=== PATIENT | female | born 1945 | race Hispanic/Latino ===

== ENCOUNTER → 2018-09-05 | Outpatient (CLI) | payer OTHER ==
[~2018-09-05] MED LIST: CANA1TAB PO; GLIP-162 PO; IOHEXOL-350 75 ML VIAL IV ONE; LOSA50TA64 PO; OMEP20CA10 PO
== END | disposition home or self-care (01) ==
LOC: RAH 07:33
PROVIDERS: ATTEND Family Medicine
DX: K57.30 Diverticulosis of large intestine without perforation or abscess without bleeding (principal); K42.9 Umbilical hernia without obstruction or gangrene; M47.817 Spondylosis without myelopathy or radiculopathy, lumbosacral region; N85.9 Noninflammatory disorder of uterus, unspecified
CPT/HCPCS: 74177; Q9967

== ENCOUNTER 2018-11-08 07:30 | Inpatient (IN) | payer OTHER ==
[2018-11-07 16:25] VITALS: BP 139/59
[2018-11-07 16:29] LABS: BASOPHILS % (AUTO) 1.3 % (0.0-5.0); HEMATOCRIT 36.4 % (36-48); LYMPHOCYTES % (AUTO) 23.8 % (21.0-51.0); MEAN CORPUSCULAR HEMOGLOBIN 29.5 pg (27.0-33.0); MEAN CORPUSCULAR VOLUME 89.4 fL (79-99); MONOCYTES % (AUTO) 7.3 % (3.0-13.0); NEUTROPHILS % (AUTO) 65.6 % (40.0-77.0); PLATELET COUNT (AUTO) 334 K/uL (130-400); RED BLOOD CELL COUNT(AUTO) 4.07 MIL/uL (4.00-5.50); RED CELL DISTRIBUTION WIDTH 14.5 % (11.0-15.5); WHITE BLOOD COUNT (AUTO) 9.4 K/uL (4.8-10.8)
[2018-11-07 16:39] LABS: CREATININE 1.5 mg/dL (0.5-1.5); POTASSIUM 4.9 mmol/L (3.5-5.1)
[2018-11-08] VITALS (20 sets, daily range): BP systolic 122–171; BP diastolic 47–97
[~2018-11-08] VITALS: Ht 144.8 cm; Wt 73.6 kg
[2018-11-08] MEDS: CEFAZOLIN SODIUM 1 GM VIAL IVP SCH ×2 (06:00→13:30)
[~2018-11-08 07:30] MED LIST changes: -CANA1TAB PO; +EMPA25TA PO; -GLIP-162 PO; -IOHEXOL-350 75 ML VIAL IV ONE; +LACTATED RINGERS 1000ML 1,000 ML IV SCH; +METF-446 PO; -OMEP20CA10 PO
[2018-11-08] MEDS ORDERED: SODIUM CHLORIDE 0.9% 1000ML 1,000 ML IV ONE (11:19)
[2018-11-08] MEDS ORDERED: LIDOCAINE PF 2% 5ML ABBOJECT ONE (12:23)
[2018-11-08] MEDS ORDERED: PROPOFOL 10 MG/ML 20ML VIAL IV ONE (12:23)
[2018-11-08] MEDS ORDERED: ROCURONIUM 10MG/1ML SYR 10 MG/ML ML ONE (12:23)
[2018-11-08] MEDS ORDERED: FENTANYL CITRATE PF 50 MCG/1 ML 2ML VIAL ONE ×2 (12:24→15:08)
[2018-11-08] MEDS ORDERED: MEPERIDINE-PF 50 MG/ML SYG ONE (12:35)
[2018-11-08] MEDS ORDERED: EPHEDRINE SULFATE 50 MG/ML AMPULE ONE (13:43)
[2018-11-08] MEDS ORDERED: GLYCOPYRROLATE 1 MG/5 ML SYRINGE ONE (14:52)
[2018-11-08] MEDS ORDERED: NEOSTIGMINE 5MG/5ML SYR IV ONE (14:52)
[2018-11-08] MEDS ORDERED: ONDANSETRON HCL 4 MG/2 ML VIAL ONE (15:38)
[2018-11-08] MEDS ORDERED: SODIUM CHLORIDE 0.9% 10 ML VIAL ONE (15:50)
[2018-11-08] MEDS ORDERED: PHENYLEPHRINE HCL 10 MG/ML 1ML VIAL IV ONE (15:50)
[2018-11-08] MEDS ORDERED: ACETAMINOPHEN-CODEINE 300/30MG TAB PO PRN (17:00)
[2018-11-08] MEDS ORDERED: IBUPROFEN 600 MG TABLET PO PRN (17:00)
[2018-11-08] MEDS ORDERED: MEPERIDINE-PF 100 MG/ML SYG ONE (17:06)
[2018-11-08] MEDS: PROMETHAZINE HCL 25 MG/ML 1ML AMPULE IM PRN (17:27)
[2018-11-08] MEDS ORDERED: BISACODYL 10 MG SUPP.RECT RC PRN (17:45)
[2018-11-08] MEDS ORDERED: PROMETHAZINE HCL 25 MG/ML 1ML AMPULE IM PRN (17:45)
[2018-11-08] MEDS ORDERED: DOCUSATE SODIUM 100 MG CAP PO PRN (17:45)
[2018-11-08] MEDS: DEXTROSE 5%-LACTATED RINGERS 1,000 ML IV SCH (18:17)
[2018-11-08 19:02] LABS: HEMATOCRIT 39.1 % (36-48)
[2018-11-08] MEDS: MEPERIDINE-PF 50 MG/ML SYG IM PRN (20:25)
[2018-11-08] MEDS ORDERED: SIMETHICONE 80 MG TAB.CHEW PO PRN (21:00)
[2018-11-09] VITALS (12 sets, daily range): BP systolic 121–150; BP diastolic 46–71
[2018-11-09] MEDS: DEXTROSE 5%-LACTATED RINGERS 1,000 ML IV SCH ×3 (01:14→17:00)
[2018-11-09] MEDS: PROMETHAZINE HCL 25 MG/ML 1ML AMPULE IM PRN (02:41)
[2018-11-09] MEDS: MEPERIDINE-PF 50 MG/ML SYG IM PRN ×3 (02:41→20:07)
[2018-11-09 03:59] LABS: HEMATOCRIT 36.8 % (36-48); MEAN CORPUSCULAR HEMOGLOBIN 30.5 pg (27.0-33.0); MEAN CORPUSCULAR HGB CONC 33.9 g/dL (32.0-36.0); MEAN CORPUSCULAR VOLUME 90.1 fL (79-99); PLATELET COUNT (AUTO) 126 K/uL (130-400); RED BLOOD CELL COUNT(AUTO) 4.08 MIL/uL (4.00-5.50); RED CELL DISTRIBUTION WIDTH 14.3 % (11.0-15.5); WHITE BLOOD COUNT (AUTO) 11.8 K/uL (4.8-10.8)
--- NOTE | 2018-11-09 08:10 | NUR ---
DR. SHIRLEY IN TO SEE PT, UPDATE GIVEN. NEW ORDERS RECEIVED AND CARRIED OUT.
--- NOTE | 2018-11-09 10:44 | NUR ---
DCP - Emotional support Sw met with pt and daughter in law. Pt reports prior to admit, she was living independently at home alone. Pt was able to complete all ADLS on her own, no DME or in home care services. pt states that she will have no help at home after dc and is requesting to go to SNF at [facility] at dc. Pt reports she is to weak to go home. Pt signed consent for referral. Sw notified CM of pt's request and CM to notify MD for order.Pt states fredy Velazquez [phone] is only child and is ER contact. Sw provided emotional support. Addendum: 11/09/18 at 1052 by MAGDALENA KRAUS Amended: Links added.
--- NOTE | 2018-11-09 12:00 | NUR ---
REPORT GIVEN TO DONALD ECHAVARRIA. TRANSFERRED PT TO ROOM 331 VIA WHEELCHAIR. PERSONAL BELONGINGS WITH PATIENT.
--- NOTE | 2018-11-09 12:13 | NUR ---
received in no acute distress and complains of minimal pain. alert, oriented and pleasant lady. hooked up in the fluids, given the call light and instructed the patient to press the call button if need anything.
[2018-11-09] MEDS ORDERED: DEXTROSE 50%-WATER 50 ML DISP.SYRIN IV PRN (21:45)
[2018-11-09] MEDS ORDERED: GLUCAGON 1MG KIT 1 MG ML IM PRN (21:45)
[2018-11-10] MEDS: DEXTROSE 5%-LACTATED RINGERS 1,000 ML IV SCH ×3 (00:46→17:42)
[2018-11-10] MEDS: PROMETHAZINE HCL 25 MG/ML 1ML AMPULE IM PRN (01:56)
[2018-11-10 03:10] VITALS: BP 146/61
[2018-11-10 04:38] LABS: HEMATOCRIT 32.4 % (36-48); MEAN CORPUSCULAR HEMOGLOBIN 29.6 pg (27.0-33.0); MEAN CORPUSCULAR HGB CONC 33.3 g/dL (32.0-36.0); MEAN CORPUSCULAR VOLUME 88.7 fL (79-99); PLATELET COUNT (AUTO) 231 K/uL (130-400); RED BLOOD CELL COUNT(AUTO) 3.66 MIL/uL (4.00-5.50); RED CELL DISTRIBUTION WIDTH 14.6 % (11.0-15.5)
[2018-11-10 05:03] LABS: BAND NEUTROPHILS % (MANUAL) 4 % (0-2); LYMPHOCYTES % (MANUAL) 9 % (22-44); MONOCYTES % (MANUAL) 1 % (2-9); SEGMENTED NEUTROPHILS % 86 % (40-70)
[2018-11-10 05:04] LABS: MAN.DIFF COMMENT-IMPRESSION MANUAL DIFFERENTIAL; PLATELET MORPHOLOGY COMMENT ADEQUATE
[2018-11-10] MEDS: INSULIN HUMULIN R 100 UNIT/ML 3ML SQ SCH ×4 (06:04→21:07)
[2018-11-10 08:52] VITALS: BP 146/65
[2018-11-10] MEDS: MEPERIDINE-PF 50 MG/ML SYG IM PRN ×2 (08:56→19:28)
[2018-11-10 12:01] VITALS: BP 164/74
[2018-11-10 16:05] VITALS: BP 156/74
[2018-11-10 19:00] VITALS: BP 130/57
[2018-11-10] MEDS: METOCLOPRAMIDE 10 MG/2 ML VIAL IVP SCH (21:07)
[2018-11-10 23:10] VITALS: BP 133/58
[2018-11-11 03:10] VITALS: BP 155/83
[2018-11-11] MEDS: KETOROLAC TROMETHAMINE 30MG/ML IV PRN ×2 (03:21→23:57)
[2018-11-11 05:42] LABS: BASOPHILS % (AUTO) 0.9 % (0.0-5.0); EOSINOPHILS % (AUTO) 1.9 % (0.0-8.0); HEMATOCRIT 30.3 % (36-48); LYMPHOCYTES % (AUTO) 16.3 % (21.0-51.0); MEAN CORPUSCULAR HGB CONC 33.9 g/dL (32.0-36.0); MEAN CORPUSCULAR VOLUME 88.5 fL (79-99); MONOCYTES % (AUTO) 6.2 % (3.0-13.0); NEUTROPHILS % (AUTO) 74.7 % (40.0-77.0); PLATELET COUNT (AUTO) 230 K/uL (130-400); RED BLOOD CELL COUNT(AUTO) 3.43 MIL/uL (4.00-5.50); RED CELL DISTRIBUTION WIDTH 14.2 % (11.0-15.5); WHITE BLOOD COUNT (AUTO) 9.7 K/uL (4.8-10.8)
[2018-11-11 05:47] LABS: CREATININE 0.8 mg/dL (0.5-1.5); POTASSIUM 3.5 mmol/L (3.5-5.1)
[2018-11-11] MEDS: INSULIN HUMULIN R 100 UNIT/ML 3ML SQ SCH ×4 (05:48→20:48)
[2018-11-11] MEDS: METOCLOPRAMIDE 10 MG/2 ML VIAL IVP SCH ×4 (06:41→20:48)
[2018-11-11 07:00] VITALS: BP 118/62
[2018-11-11] MEDS: METFORMIN HCL 500 MG TABLET PO SCH ×2 (09:55→19:27)
[2018-11-11] MEDS: ENOXAPARIN SODIUM 40 MG/0.4 ML SYRINGE SQ SCH (09:55)
[2018-11-11] MEDS: FAMOTIDINE/PF 20 MG/2 ML VIAL IV SCH (09:55)
[2018-11-11] MEDS: LOSARTAN 50 MG TABLET PO SCH (10:02)
[2018-11-11 11:00] VITALS: BP 134/72
--- NOTE | 2018-11-11 13:35 | NUR ---
DR. GREENE HERE AND SPOKE WITH PT. REVIEW PLAN OF CARE AND ASSESS HER INCISIONAL SITE. . J.P. DRAIN WAS MILK TECH PER . DR. GREENE . STATED THAT IT ALL LOOK HEALING PROCESS NOTED .JORDY IN PLACE . ABD ANGI CHANGED , AND ABD BINDER ON. TOLERATE WELL. PT HAS BEEN UP AMBULATING TO THE RESTROOM, WITH SOME HELP. AND STATES THAT IT HURTS HER, ASSIT ALSO TO CHAIR , CALL LIGHT IN REACH.
[2018-11-11 16:00] VITALS: BP 131/72
--- NOTE | 2018-11-11 18:47 | NUR ---
D/C PLAN F/U CM spoke to pt regarding md recommendations for short term snf/rehab vs LTAC. Pt states she prefers LTAC placement. CM explained different levels of care. CM also notified pt that placement requires insurance approval. REINIER obtained consent for [facility] as first choices with [facility] as plan B. CM to fax referral and f/u. Addendum: 11/11/18 at 1849 by KIRSTEN ROTHMAN CM Amended: Links added.
[2018-11-11 19:00] VITALS: BP 130/67
[2018-11-11 23:10] VITALS: BP 156/77
[2018-11-12 03:00] VITALS: BP 152/60
--- NOTE | 2018-11-12 04:48 | NUR ---
INCISION CARE MIDLINE ABDOMINAL INCISION PAINTED WITH BETADINE SWAB ,PAT DRIED, COVERED WITH NON-ADHERENT DRESSING ,ANCHORED WITH TAPE,X38 JORDY INTACT ,INCISION WELL APPROXIMATED , NO REDNESS ,NO SWELLING , NO DISCHARGES, MEASURES 17.5CM LENGTH. TASHA DRAIN SITE (LLQ)CLEANED IN THE SAME FASHION , BLACK SUTURE TO ANCHOR TASHA DRAIN INTACT ,SCANT OOZING AT SITE ,SANGUINEOUS, COVERED WITH STERILE SPLIT GAUZE AND TAPED TO SECURE, TOTAL BULB DRAINAGE 45ML SS DRAIN. TOLERATED WELL Addendum: 11/12/18 at 0454 by RAQUEL SIDDIQI RN RN Amended: Links added.
[2018-11-12] MEDS: INSULIN HUMULIN R 100 UNIT/ML 3ML SQ SCH ×5 (06:34→22:05)
[2018-11-12] MEDS: METOCLOPRAMIDE 10 MG/2 ML VIAL IVP SCH ×4 (06:52→22:09)
[2018-11-12 07:00] VITALS: BP 134/55
--- NOTE | 2018-11-12 08:00 | NUR ---
DR. SHIRLEY AT THE BEDSIDE . PT POSITION IN BED. PROCEDURE OF DC J.P DRAIN WAS EDUCATED FOR REMOVAL SUTURE REMOVED AND J.P DRAIN WAS PULLED OUT GENTLY FROM HER LEFT LOWER QUARDANT OF ABD.. INTACT WHITE LONG TUBE NOTED . DR. SHIRLEY , CLOSE THE INCISIONAL SITE .WITH EDER STRIPE . SITE CLEAN AND WITHOUT REDNESS . J.P. DRAIN OUTPUT OF 50 CC OF SERO SANGROUS . THIN LIQ. ALSO ASSESS HER MID LINE INCISIONAL SITE .JORDY IN PLACE ,EXPLAIN T O PT REMOVAL WILL BE ALMOST ABOUT 10 DAYS IN HIS OFFICE APPT. PENDING APPROVAL OF DISCHARGE CARE . .
--- NOTE | 2018-11-12 10:00 | NUR ---
cm note updated pt on denial by [facility], referral sent to [facility], passer done, pending acceptance. pt can transport by [facility].
[2018-11-12] MEDS: LOSARTAN 50 MG TABLET PO SCH (10:51)
[2018-11-12] MEDS: ENOXAPARIN SODIUM 40 MG/0.4 ML SYRINGE SQ SCH (10:51)
[2018-11-12] MEDS: FAMOTIDINE/PF 20 MG/2 ML VIAL IV SCH (10:51)
[2018-11-12] MEDS: METFORMIN HCL 500 MG TABLET PO SCH ×2 (10:54→17:42)
[2018-11-12 11:00] VITALS: BP 174/75
--- NOTE | 2018-11-12 15:00 | NUR ---
PT WAS GIVEN A SUPP. AND HAD ALREADY 3 STOOLS .GOOD RESULTS . .
[2018-11-12] MEDS: METOPROLOL TARTRATE 25 MG TAB PO SCH ×2 (15:20→22:09)
[2018-11-12 16:00] VITALS: BP 127/71
[2018-11-12 20:58] VITALS: BP 161/75
[2018-11-12 23:33] VITALS: BP 144/54
[2018-11-13 03:50] VITALS: BP 163/57
[2018-11-13 05:06] LABS: HEMATOCRIT 33.3 % (36-48); MEAN CORPUSCULAR HEMOGLOBIN 29.7 pg (27.0-33.0); MEAN CORPUSCULAR HGB CONC 33.8 g/dL (32.0-36.0); MEAN CORPUSCULAR VOLUME 87.8 fL (79-99); PLATELET COUNT (AUTO) 415 K/uL (130-400); RED CELL DISTRIBUTION WIDTH 14.1 % (11.0-15.5); WHITE BLOOD COUNT (AUTO) 10.6 K/uL (4.8-10.8)
[2018-11-13 05:20] LABS: CREATININE 0.9 mg/dL (0.5-1.5); POTASSIUM 3.5 mmol/L (3.5-5.1)
[2018-11-13] MEDS: METOCLOPRAMIDE 10 MG/2 ML VIAL IVP SCH ×2 (06:52→12:44)
[2018-11-13 07:00] VITALS: BP 149/73
--- NOTE | 2018-11-13 08:00 | NUR ---
UP AMBULATING WELL. REVIEW PLAN OF CARE. DENIES ANY PAIN.
[2018-11-13] MEDS: LOSARTAN 50 MG TABLET PO SCH (08:24)
[2018-11-13] MEDS: METOPROLOL TARTRATE 25 MG TAB PO SCH ×2 (08:24→14:15)
[2018-11-13] MEDS: FAMOTIDINE/PF 20 MG/2 ML VIAL IV SCH (08:25)
[2018-11-13] MEDS: ENOXAPARIN SODIUM 40 MG/0.4 ML SYRINGE SQ SCH (08:25)
[2018-11-13] MEDS: METFORMIN HCL 500 MG TABLET PO SCH (08:25)
--- NOTE | 2018-11-13 10:00 | NUR ---
DRSG TO HER MID AREA CHANGED , CLEANSE WITH THE BETADINE . SWABS . TO MID AREA. JORDY INTACK. NOTED NO OOZING. OR REDNESS TO SITE.. .. NON STICK , GAUZE ON AND SECURE TO HER ABD WITH PAPER TAPE AND A CLEAN ABDOMINAL BINDER APPLICATION ON.. TOLERATE WELL . ACTIVE BOWEL SOUNDS NOTED. CALL LIGHT IN REACH..
[2018-11-13 11:00] VITALS: BP 147/65
[2018-11-13] MEDS: INSULIN HUMULIN R 100 UNIT/ML 3ML SQ SCH (11:30)
--- NOTE | 2018-11-13 15:43 | NUR ---
CM Note: Cancel [facility] pt changed her mind, dcp to home CM spoke to pt at this time, pt verbalized she would like to go home instead, she no longer wants to to to a facility, and prefers to go back home. Primary nurse aware. MD aware, pending hospitalist to clear pt a this time. Cancelled [facility] referral. DC plan to home via private car. CM to cont to follow up.
[2018-11-13 16:00] VITALS: BP 131/73
--- NOTE | 2018-11-13 17:55 | NUR ---
DRSG . CHANGES REVIEW, EDUCATION GIVEN . LIGHT DRSG TO HER MID INCISION SITE .CLEAN, , . NOTED NO DRAINAGE. PT UP AND AMBULATORY
--- NOTE | 2018-11-13 18:50 | NUR ---
BLOOD SUGAR WAS CHECK FOR THE 1630, WITH A RESULT OF 154, UNABLE TO CHART . RESULTS . NO COVERAGE / NEEDED . DISCHARGE SUMMARY WAS REVIEW WITH PT. OF APPT . DONE FOR HER ,WITH DR. SHIRLEY , AND DR BASS , , AND TO FOLLOW WITH PRIVATE FOR A REFERRAL FOR DR. BASS CONSULTATION .PT STATED THAT ALL OF THAT WAS TAKEN CARE OF . SL TO HE RFA, WAS DC , WITH NO HEMATOMA NOTED. DENIES ANY DISCOMFORT .ABD BINDER ON . DENIES ANY NAUSEA , OR PAIN. . QUESTION REVIEW OF EDUCATION GIVEN. .
== END 2018-11-13 18:50 | disposition home or self-care (01) | DRG 750 ==
LOC: EDSTATUS 07:30 → DAHIP 10:38 → 2CH 16:14 → 3AH 11-09 12:12
PROVIDERS: ADMIT Internal Medicine; ATTEND Internal Medicine
PROC: 0DBU0ZZ Excision of Omentum, Open Approach (ICD-10-PCS; principal; 2018-11-08 13:40)
PROC: 0WBH0ZZ Excision of Retroperitoneum, Open Approach (ICD-10-PCS; 2018-11-08 13:40)
PROC: 30233N1 Transfusion of Nonautologous Red Blood Cells into Peripheral Vein, Percutaneous Approach (ICD-10-PCS; 2018-11-08 13:40)
DX: C56.9 Malignant neoplasm of unspecified ovary (principal); E66.9 Obesity, unspecified; E11.9 Type 2 diabetes mellitus without complications; I10 Essential (primary) hypertension; K21.9 Gastro-esophageal reflux disease without esophagitis; R63.4 Abnormal weight loss; Z68.35 Body mass index [BMI] 35.0-35.9, adult; Z79.84 Long term (current) use of oral hypoglycemic drugs; Z82.49 Family history of ischemic heart disease and other diseases of the circulatory system; Z83.6 Family history of other diseases of the respiratory system
CPT/HCPCS: 36415; 71046; 80048; 82948; 85014; 85018; 85025; 85027; 86850; 86900; 86901; 86922; 88108; 88305; 93005; 97039; A4344; G0378; J0690; J1650; J1815; J1885; J2001; J2175; J2370; J2405; J2550; J2704; J2710; J2765; J3010; J3490; J7030; P9016

== ENCOUNTER 2018-11-28 11:00 | Day surgery (SDC) | payer OTHER ==
[2018-11-26 16:03] LABS: EOSINOPHILS % (AUTO) 1.4 % (0.0-8.0); LYMPHOCYTES % (AUTO) 22.3 % (21.0-51.0); MEAN CORPUSCULAR HEMOGLOBIN 30.3 pg (27.0-33.0); MEAN CORPUSCULAR HGB CONC 34.3 g/dL (32.0-36.0); MEAN CORPUSCULAR VOLUME 88.5 fL (79-99); MONOCYTES % (AUTO) 7.1 % (3.0-13.0); NEUTROPHILS % (AUTO) 68.2 % (40.0-77.0); PLATELET COUNT (AUTO) 480 K/uL (130-400); RED BLOOD CELL COUNT(AUTO) 4.18 MIL/uL (4.00-5.50); RED CELL DISTRIBUTION WIDTH 14.9 % (11.0-15.5); WHITE BLOOD COUNT (AUTO) 10.6 K/uL (4.8-10.8)
[2018-11-26 16:10] VITALS: BP 131/64
[2018-11-26 16:16] LABS: CREATININE 1.3 mg/dL (0.5-1.5); POTASSIUM 4.2 mmol/L (3.5-5.1)
[2018-11-26 16:19] LABS: PARTIAL THROMBOPLASTIN TIME 30.2 SEC (26.3-35.5); PROTHROMBIN TIME 10.5 SEC (9.6-11.6)
[~2018-11-28] VITALS: Ht 151.1 cm; Wt 70.2 kg
[~2018-11-28 11:00] MED LIST changes: -LACTATED RINGERS 1000ML 1,000 ML IV SCH; +MULT-1250 PO; +OMEP-50 PO
[2018-11-28 11:15] VITALS: BP 169/60
--- NOTE | 2018-11-28 11:15 | NUR ---
ASSESSMENT PT HERE FOR PROCEDURE. DOING WELL. NO PAIN OR DISCOMFORTS AT THIS TIME.
[2018-11-28] MEDS ORDERED: SODIUM CHLORIDE 0.9% 1000ML 1,000 ML IV ONE (13:47)
--- NOTE | 2018-11-28 13:55 | NUR ---
PROCEDURE PT TAKEN TO PROCEDURE VIA BED BY AGENT CONTRACT CLERK STAFF DONALD BURLESON.
[2018-11-28] MEDS ORDERED: LIDOCAINE 1%-EPI 1:100,000 20 ML VIAL IJ ONE (13:57)
[2018-11-28] MEDS ORDERED: LIDOCAINE HCL 1% MDV 50ML VIAL ONE (13:57)
[2018-11-28] MEDS ORDERED: SODIUM BICARB 50MEQ 50ML VIAL ONE (14:18)
[2018-11-28] MEDS ORDERED: MIDAZOLAM HCL 1 MG/ML 2ML VIAL ONE (14:38)
[2018-11-28] MEDS ORDERED: FENTANYL CITRATE PF 50 MCG/1 ML 2ML VIAL ONE (14:38)
[2018-11-28] MEDS ORDERED: OCTYL 2-CYANOACRYLATE 1 EACH TP ONE (15:18)
[2018-11-28 15:45] VITALS: BP 123/48
--- NOTE | 2018-11-28 15:45 | NUR ---
SITE CHECK SITE CHECK TO RIGHT UPPER CHEST DRY AND INTACT. NO BLEEDING, OOZING NOTED TO SITE.
[2018-11-28 16:00] VITALS: BP 121/48
[2018-11-28 16:15] VITALS: BP 123/48
[2018-11-28 16:30] VITALS: BP 114/48
[2018-11-28] MEDS ORDERED: ACETAMINOPHEN 325 MG TAB PO SCH (16:35)
[2018-11-28 16:45] VITALS: BP 114/85
--- NOTE | 2018-11-28 16:45 | NUR ---
SITE CHECK SITE TO RIGHT UPPER CHEST DRY AND INTACT. NO BLEEDING, OOZING NOTED TO SITE. SOFT TO TOUCH.
== END 2018-11-28 17:00 | disposition home or self-care (01) ==
LOC: DAH 11:00
PROVIDERS: ATTEND Internal Medicine Hematology & Oncology
DX: Z45.2 Encounter for adjustment and management of vascular access device (principal); C56.1 Malignant neoplasm of right ovary; I10 Essential (primary) hypertension; E11.9 Type 2 diabetes mellitus without complications; F41.9 Anxiety disorder, unspecified; K21.9 Gastro-esophageal reflux disease without esophagitis; Z98.890 Other specified postprocedural states; Z79.01 Long term (current) use of anticoagulants; Z79.84 Long term (current) use of oral hypoglycemic drugs; Z79.899 Other long term (current) drug therapy; Z80.0 Family history of malignant neoplasm of digestive organs; Z83.3 Family history of diabetes mellitus
CPT/HCPCS: 36415; 36561; 77001; 80048; 82948 ×2; 85025; 85610; 85730; A4606; C1788; C1894; J1644 ×2; J2250; J3010; J3490 ×3; J7030; 99156; 99157

== ENCOUNTER 2019-01-16 07:49 | Inpatient (IN) | payer OTHER ==
[~2019-01-16] VITALS: Ht 152.4 cm; Wt 70.7 kg
[2019-01-16] MEDS ORDERED: INSULIN HUMULIN R 100 UNIT/ML 3ML ONE ×2 (08:11→13:02)
[2019-01-16] MEDS ORDERED: IPRATROPIUM/ALBUTEROL SULFATE 3 ML SOLUTION IH ONE (08:21)
[2019-01-16 08:44] LABS: BASOPHILS % (AUTO) 0.8 % (0.0-5.0); EOSINOPHILS % (AUTO) 0.1 % (0.0-8.0); HEMATOCRIT 33.9 % (36-48); LYMPHOCYTES % (AUTO) 31.3 % (21.0-51.0); MEAN CORPUSCULAR HGB CONC 33.3 g/dL (32.0-36.0); MEAN CORPUSCULAR VOLUME 93.1 fL (79-99); MONOCYTES % (AUTO) 2.9 % (3.0-13.0); NEUTROPHILS % (AUTO) 64.9 % (40.0-77.0); NUCLEATED RED BLOOD CELLS 0.1 % (0.0-0.19); PLATELET COUNT (AUTO) 234 K/uL (130-400); RED BLOOD CELL COUNT(AUTO) 3.64 MIL/uL (4.00-5.50); RED CELL DISTRIBUTION WIDTH 17.8 % (11.0-15.5); WHITE BLOOD COUNT (AUTO) 1.6 K/uL (4.8-10.8)
[2019-01-16 08:55] LABS: BILIRUBIN,TOTAL 0.8 mg/dL (0.2-1.0); CREATININE 1.3 mg/dL (0.5-1.5); POTASSIUM 5.6 mmol/L (3.5-5.1); TOTAL PROTEIN, SERUM 7.5 g/dL (6.0-8.3)
[2019-01-16 08:57] LABS: INR 1.05 (0.85-1.15); PARTIAL THROMBOPLASTIN TIME 20.5 SEC (26.3-35.5)
[2019-01-16 09:07] LABS: B-TYPE NATRIURETIC PEPTIDE 116 pg/mL (0-100)
[2019-01-16] MEDS ORDERED: ZOSYN 3.375GM+NS 50ML 50 ML IV ONE ×3 (09:34→18:23)
[2019-01-16 09:45] LABS: BAND NEUTROPHILS % (MANUAL) 17 % (0-2); LYMPHOCYTES % (MANUAL) 22 % (22-44); MAN.DIFF COMMENT-IMPRESSION MANUAL DIFFERENTIAL; MONOCYTES % (MANUAL) 3 % (2-9); PLATELET MORPHOLOGY COMMENT ADEQUATE; REACTIVE LYMPHOCYTES 1 % (0-0); SEGMENTED NEUTROPHILS % 57 % (40-70)
[2019-01-16] MEDS ORDERED: SODIUM CHLORIDE 0.9% 1000ML 1,000 ML IV ONE ×2 (09:45→11:11)
[2019-01-16] MEDS ORDERED: VANCOMYCIN 1GM+NS 250ML 250 ML IV ONE (10:07)
[2019-01-16 10:11] LABS: APPEARANCE,URINE Clear (CLEAR); BILIRUBIN,URINE Negative (NEGATIVE); COLOR,URINE Yellow (YELLOW); GLUCOSE, URINE (UA) >=1000 mg/dL (NEGATIVE); KETONES,URINE >=80 mg/dL (NEGATIVE); LEUKOCYTE ESTERASE ,URINE Negative (NEGATIVE); NITRATE,URINE Negative (NEGATIVE); OCCULT BLOOD,URINE Negative (NEGATIVE); PROTEIN,URINE Negative (NEGATIVE)
[2019-01-16 10:37] LABS: BACTERIA,URINE Rare /HPF (None Seen); RBC,URINE None Seen /HPF (0-1); SQUAMOUS EPITHELIAL CELL,UR 0-2 /HPF (0-2); WBC,URINE None Seen /HPF (0-1); YEAST,URINE BUDDING Many /HPF (None Seen)
[2019-01-16 10:48] LABS: ABG BASE EXCESS -19.3 mmol/L (-2.0-3.0); ABG HCO3 4.4 mmol/L (21.0-28.0); ABG OXYGEN SATURATION 98.8 % (95.0-99.0); ABG PCO2 < 17 mmHg (32-45)
[2019-01-16] MEDS ORDERED: SODIUM CHLORIDE 0.9% 100 ML IV ONE ×2 (13:04→15:03)
[2019-01-16 14:44] LABS: ABG BASE EXCESS -21.7 mmol/L (-2.0-3.0); ABG HCO3 4.1 mmol/L (21.0-28.0); ABG OXYGEN SATURATION 98.8 % (95.0-99.0); ABG PCO2 < 17 mmHg (32-45)
[2019-01-16] MEDS ORDERED: LACTATED RINGERS 1000ML 1,000 ML IV ONE ×2 (14:47→23:52)
[2019-01-16] MEDS ORDERED: SODIUM BICARB 50MEQ 50ML VIAL ONE (15:02)
[2019-01-16 16:10] LABS: PHOSPHORUS 6.7 mg/dL (2.5-4.9)
[2019-01-16] MEDS ORDERED: DEXTROSE 5 %-0.45 % NACL 1,000 ML IV ONE ×2 (17:02→23:54)
[2019-01-16 17:53] LABS: CREATININE 1.2 mg/dL (0.5-1.5); POTASSIUM 4.4 mmol/L (3.5-5.1)
[2019-01-16 18:31] LABS: ABG BASE EXCESS -11.5 mmol/L (-2.0-3.0); ABG HCO3 8.5 mmol/L (21.0-28.0); ABG OXYGEN SATURATION 99.1 % (95.0-99.0); ABG PCO2 < 17 mmHg (32-45)
[2019-01-16] MEDS ORDERED: ENOXAPARIN SODIUM 40 MG/0.4 ML SYRINGE SQ ONE (21:08)
[2019-01-16 22:54] LABS: CREATININE 1.1 mg/dL (0.5-1.5); POTASSIUM 3.9 mmol/L (3.5-5.1)
[2019-01-16 22:58] LABS: MAGNESIUM 1.5 mg/dL (1.80-2.40)
[2019-01-16] MEDS ORDERED: MAGNESIUM 2GM PREMIX 50ML 50 ML IV ONE (23:13)
[2019-01-17 02:16] LABS: CREATININE 1.1 mg/dL (0.5-1.5); POTASSIUM 3.5 mmol/L (3.5-5.1)
[2019-01-17 02:19] LABS: PHOSPHORUS 2.7 mg/dL (2.5-4.9)
[2019-01-17] MEDS ORDERED: ZOSYN 3.375GM+NS 50ML 50 ML IV ONE ×3 (04:10→21:08)
[2019-01-17 06:25] LABS: POTASSIUM 3.3 mmol/L (3.5-5.1)
[2019-01-17 06:29] LABS: MAGNESIUM 2.2 mg/dL (1.80-2.40); PHOSPHORUS 2.7 mg/dL (2.5-4.9)
[2019-01-17 07:11] LABS: BASOPHILS % (AUTO) 0.4 % (0.0-5.0); EOSINOPHILS % (AUTO) 0.2 % (0.0-8.0); HEMATOCRIT 22.6 % (36-48); MEAN CORPUSCULAR HGB CONC 34.2 g/dL (32.0-36.0); MEAN CORPUSCULAR VOLUME 87.7 fL (79-99); MONOCYTES % (AUTO) 16.9 % (3.0-13.0); NEUTROPHILS % (AUTO) 20.5 % (40.0-77.0); NUCLEATED RED BLOOD CELLS 0.3 % (0.0-0.19); PLATELET COUNT (AUTO) 120 K/uL (130-400); RED BLOOD CELL COUNT(AUTO) 2.57 MIL/uL (4.00-5.50); RED CELL DISTRIBUTION WIDTH 17.9 % (11.0-15.5)
[2019-01-17 07:24] VITALS: BP 115/48
[2019-01-17 07:31] LABS: WHITE BLOOD COUNT (AUTO) 0.8 K/uL (4.8-10.8)
[2019-01-17] MEDS: ZOSYN 3.375GM+NS 50ML 50 ML IV SCH (07:45)
[2019-01-17] MEDS ORDERED: INSULIN REGULAR, HUMAN 3ML 100 UNIT in SODIUM CHLORIDE 0.9% 99 ML IV PRN ×2 (07:45)
[2019-01-17 08:00] VITALS: BP 125/46
[2019-01-17] MEDS ORDERED: LOSA1TAB37 PO (08:02)
[2019-01-17] MEDS ORDERED: LEVO500T89 PO (08:02)
[2019-01-17] MEDS ORDERED: NYST5ORA7 PO (08:02)
[2019-01-17] MEDS ORDERED: MEGE400O20 PO (08:02)
[2019-01-17] MEDS ORDERED: POTASSIUM CHLORIDE 20MEQ/100ML 100 ML IV ONE (08:22)
[2019-01-17] MEDS ORDERED: VANCOMYCIN 1GM+NS 250ML 250 ML IV ONE ×2 (08:22→10:07)
[2019-01-17] MEDS ORDERED: ENOXAPARIN SODIUM 40 MG/0.4 ML SYRINGE SQ ONE ×2 (08:22→21:08)
[2019-01-17] MEDS ORDERED: FAMOTIDINE/PF 20 MG/2 ML VIAL IV ONE (08:23)
[2019-01-17] MEDS: LACTATED RINGERS 1000ML 1,000 ML IV SCH (08:29)
[2019-01-17] MEDS: DEXTROSE 5 %-0.45 % NACL 1,000 ML IV SCH (08:29)
[2019-01-17] MEDS: FAMOTIDINE/PF 20 MG/2 ML VIAL IV SCH (08:30)
[2019-01-17] MEDS: VANCOMYCIN 1GM+NS 250ML 250 ML IV SCH (08:32)
[2019-01-17] MEDS: ENOXAPARIN SODIUM 40 MG/0.4 ML SYRINGE SQ SCH (08:37)
[2019-01-17] MEDS ORDERED: POTASSIUM CHLORIDE 20MEQ/100ML 100 ML IV SCH (08:45)
[2019-01-17 10:28] LABS: HEMATOCRIT 26.5 % (36-48)
[2019-01-17 10:35] LABS: POTASSIUM 3.7 mmol/L (3.5-5.1)
[2019-01-17 10:38] LABS: MAGNESIUM 1.9 mg/dL (1.80-2.40); PHOSPHORUS 2.5 mg/dL (2.5-4.9)
[2019-01-17] MEDS ORDERED: DEXTROSE 5 %-0.45 % NACL 1,000 ML IV ONE (13:43)
--- NOTE | 2019-01-17 13:52 | NUR ---
DCP: [facility] met with pt and her son Sandor Velazquez [phone]. Pt states that she lives independently at home alone. Pt is able to complete her ADLS and home management on her own. PT is seen by Dr Chepe Bran and Dr Carballo for CA. Pt denies dc needs at this time and plan is home at [facility] to follow and assist as needed Addendum: 01/17/19 at 1359 by MAGDALENA KRAUS Amended: Links added.
[2019-01-17] MEDS ORDERED: ACETAMINOPHEN 325 MG TAB ONE (14:34)
[2019-01-17] MEDS ORDERED: LACTATED RINGERS 1000ML 1,000 ML IV ONE ×2 (16:23→16:25)
[2019-01-17 16:39] LABS: POTASSIUM 3.6 mmol/L (3.5-5.1)
[2019-01-17 16:42] LABS: MAGNESIUM 1.8 mg/dL (1.80-2.40)
[2019-01-17 22:27] LABS: CREATININE 0.8 mg/dL (0.5-1.5); POTASSIUM 3.3 mmol/L (3.5-5.1)
[2019-01-17 22:40] LABS: MAGNESIUM 1.5 mg/dL (1.80-2.40); PHOSPHORUS 1.8 mg/dL (2.5-4.9)
[2019-01-17] MEDS ORDERED: INSULIN HUMULIN R 100 UNIT/ML 3ML ONE (23:44)
[2019-01-18] MEDS ORDERED: POTASSIUM CHLORIDE 20MEQ/100ML 100 ML IV ONE (02:13)
[2019-01-18] MEDS ORDERED: MAGNESIUM 2GM PREMIX 50ML 50 ML IV ONE (02:13)
[2019-01-18 03:20] VITALS: BP 103/47
[2019-01-18] MEDS: DEXTROSE 5 %-0.45 % NACL 1,000 ML IV SCH (03:30)
[2019-01-18] MEDS ORDERED: POTASSIUM CHLORIDE 10MEQ/100ML 100 ML IV ONE (04:01)
[2019-01-18] MEDS: ACETAMINOPHEN 325 MG TAB PO PRN ×2 (04:18→20:39)
[2019-01-18] MEDS: ZOSYN 3.375GM+NS 50ML 50 ML IV SCH ×3 (05:04→16:37)
[2019-01-18] MEDS: LACTATED RINGERS 1000ML 1,000 ML IV SCH ×2 (05:45→20:40)
[2019-01-18 08:00] VITALS: BP 111/54
[2019-01-18] MEDS: FAMOTIDINE/PF 20 MG/2 ML VIAL IV SCH ×2 (09:05→20:37)
[2019-01-18] MEDS: TBO-FILGRASTIM 480 MCG/0.8 ML ML SQ SCH (09:05)
[2019-01-18] MEDS: VANCOMYCIN 1GM+NS 250ML 250 ML IV SCH (09:08)
[2019-01-18] MEDS: ENOXAPARIN SODIUM 40 MG/0.4 ML SYRINGE SQ SCH (09:08)
[2019-01-18 11:00] VITALS: BP 116/58
--- NOTE | 2019-01-18 12:22 | NUR ---
TRIGGER RECEIVED. Pt REPORTS THAT SHE WAS HAVING TROUBLE BRINGING UP PHLEGM. SYMPTOMS HAVE SUBSIDED AND WAS ABLE TO PARTICIPATE IN P.O. THIS MORNING WITH NO DIFFICULTY SWALLOWING. Pt DECLINED TO PARTICIPATE IN EVALUATION AT THIS TIME. Pt TOLERATING DIET AT THIS TIME. RECOMMEND CONTINUED P.O. INTAKE. Addendum: 01/18/19 at 1223 by ESAU BURGOS, [facility] Amended: Links added.
--- NOTE | 2019-01-18 14:42 | NUR ---
RD NOTIFICATION DX: OVARIAN CANCER, SEPSIS. HX: METASTATIC OVARIAN CANCER, DM2, GERD, HTN. BMI 32.4; CLASSIFIED OBESE. DIET: 75GMCCD. LBM: 01/16. SKIN: 2+ PITTING EDEMA, LEFT BUTTOCK ULCER. PO: 25-50% AND HAS DECREASED APPETITE PER PT. PT CLAIMS TO BE HAVING DIFFICULTY SWALLOWING. RECOMMEND CONSULT WITH STRETCHER DRIER OPERATOR. PT WOULD LIKE SOUP, JELLO, AND GLUCERNA (STRAWBERRY) AT EVERY MEAL. SHE STATED THAT IS ALL SHE CAN TOLERATE [id number]. RD RECOMMENDS CONTINUE WITH CURRENT DIET. CONSULT STRETCHER DRIER OPERATOR FOR SWALLOW. BRING SOUP, JELLO, AND GLUCERNA WITH EVERY MEAL. RD WILL CONTINUE TO MONITOR AND FOLLOW UP NEEDED. THANK YOU. VINOD FISCHER Addendum: 01/18/19 at [address] Amended: Links added.
[2019-01-18 16:00] VITALS: BP 127/67
[2019-01-18 20:21] VITALS: BP 126/59
[2019-01-18 23:52] VITALS: BP 149/61
[2019-01-19] MEDS: ZOSYN 3.375GM+NS 50ML 50 ML IV SCH ×4 (00:01→23:51)
[2019-01-19 04:21] VITALS: BP 137/61
[2019-01-19 04:56] LABS: HEMATOCRIT 24.1 % (36-48); MEAN CORPUSCULAR HEMOGLOBIN 30.9 pg (27.0-33.0); MEAN CORPUSCULAR HGB CONC 35.8 g/dL (32.0-36.0); MEAN CORPUSCULAR VOLUME 86.5 fL (79-99); NUCLEATED RED BLOOD CELLS 0.3 % (0.0-0.19); PLATELET COUNT (AUTO) 83 K/uL (130-400); RED BLOOD CELL COUNT(AUTO) 2.79 MIL/uL (4.00-5.50); RED CELL DISTRIBUTION WIDTH 17.3 % (11.0-15.5); WHITE BLOOD COUNT (AUTO) 2.7 K/uL (4.8-10.8)
[2019-01-19 05:14] LABS: CREATININE 0.6 mg/dL (0.5-1.5); MAGNESIUM 1.5 mg/dL (1.80-2.40); POTASSIUM 3.2 mmol/L (3.5-5.1)
[2019-01-19 05:46] LABS: BAND NEUTROPHILS % (MANUAL) 7 % (0-2); EOSINOPHILS % (MANUAL) 2 % (1-6); LYMPHOCYTES % (MANUAL) 60 % (22-44); METAMYELOCYTES % 2 % (0-0); MONOCYTES % (MANUAL) 19 % (2-9); REACTIVE LYMPHOCYTES 3 % (0-0); SEGMENTED NEUTROPHILS % 7 % (40-70)
[2019-01-19 05:52] LABS: MAN.DIFF COMMENT-IMPRESSION MANUAL DIFFERENTIAL; PLATELET MORPHOLOGY COMMENT DECREASED
[2019-01-19] MEDS: MAGNESIUM 2GM PREMIX 50ML 50 ML IV PRN ×2 (07:00→22:47)
[2019-01-19 08:00] VITALS: BP 145/75
[2019-01-19] MEDS ORDERED: LIDOCAINE HCL-MPF 1% 2ML VIAL IV PRN (08:15)
[2019-01-19] MEDS: POTASSIUM CHLORIDE 20MEQ/100ML 100 ML IV PRN ×3 (08:19→22:47)
[2019-01-19] MEDS: VANCOMYCIN 1GM+NS 250ML 250 ML IV SCH (08:42)
[2019-01-19] MEDS: FAMOTIDINE/PF 20 MG/2 ML VIAL IV SCH ×2 (08:42→21:49)
[2019-01-19] MEDS: ENOXAPARIN SODIUM 40 MG/0.4 ML SYRINGE SQ SCH (08:43)
[2019-01-19] MEDS: TBO-FILGRASTIM 480 MCG/0.8 ML ML SQ SCH (08:43)
[2019-01-19 11:00] VITALS: BP 125/65
[2019-01-19] MEDS: LACTATED RINGERS 1000ML 1,000 ML IV SCH (12:50)
[2019-01-19 16:00] VITALS: BP 118/64
[2019-01-19 20:00] VITALS: BP 111/55
[2019-01-19 21:57] LABS: MAGNESIUM 1.8 mg/dL (1.80-2.40); POTASSIUM 3.2 mmol/L (3.5-5.1)
[2019-01-19 23:51] VITALS: BP 135/63
[2019-01-20] MEDS: POTASSIUM CHLORIDE 20MEQ/100ML 100 ML IV PRN (01:31)
[2019-01-20 04:00] VITALS: BP 145/63
[2019-01-20 05:46] LABS: HEMATOCRIT 25.1 % (36-48); MEAN CORPUSCULAR HEMOGLOBIN 29.8 pg (27.0-33.0); MEAN CORPUSCULAR HGB CONC 34.6 g/dL (32.0-36.0); MEAN CORPUSCULAR VOLUME 86.1 fL (79-99); NUCLEATED RED BLOOD CELLS 0.1 % (0.0-0.19); PLATELET COUNT (AUTO) 83 K/uL (130-400); RED BLOOD CELL COUNT(AUTO) 2.92 MIL/uL (4.00-5.50); RED CELL DISTRIBUTION WIDTH 18.4 % (11.0-15.5)
[2019-01-20 06:09] LABS: CREATININE 0.6 mg/dL (0.5-1.5); MAGNESIUM 2.1 mg/dL (1.80-2.40)
[2019-01-20 07:59] VITALS: BP 109/57
--- NOTE | 2019-01-20 08:00 | NUR ---
PATIENT UPDATE Patient's electrolytes rechecked last night after van supplementation started from am, K+ still at 3.2 and mg still at 1.8. 40meq kcl ivpb and 2 gms mgso4 administered through the port, electrolytes corrected. Dr. Carballo just rounded and ordered to d/c the telemetry and fc and for case mgt consult for snf placement.
[2019-01-20] MEDS: TBO-FILGRASTIM 480 MCG/0.8 ML ML SQ SCH (09:18)
[2019-01-20] MEDS: FAMOTIDINE/PF 20 MG/2 ML VIAL IV SCH ×2 (09:18→21:29)
[2019-01-20] MEDS: ENOXAPARIN SODIUM 40 MG/0.4 ML SYRINGE SQ SCH (09:19)
[2019-01-20] MEDS: ZOSYN 3.375GM+NS 50ML 50 ML IV SCH ×3 (09:20→23:35)
[2019-01-20] MEDS: LACTATED RINGERS 1000ML 1,000 ML IV SCH ×3 (09:21→21:31)
[2019-01-20] MEDS: VANCOMYCIN 1GM+NS 250ML 250 ML IV SCH ×2 (09:40→21:30)
[2019-01-20 10:59] VITALS: BP 161/68
[2019-01-20 15:55] VITALS: BP 119/63
--- NOTE | 2019-01-20 17:00 | NUR ---
md notification Dr. Carballo notified about episode of anxiety, new orders received and will carry out.
[2019-01-20] MEDS ORDERED: LORAZEPAM 1 MG TABLET PO ONE (17:15)
[2019-01-20] MEDS: INSULIN HUMULIN R 100 UNIT/ML 3ML SQ SCH (17:25)
[2019-01-20 20:00] VITALS: BP 136/69
[2019-01-20] MEDS ORDERED: INSULIN HUMULIN R 100 UNIT/ML 3ML SQ SCH (21:00)
[2019-01-21] VITALS: BP 147/74
[2019-01-21 04:00] VITALS: BP 165/71
--- NOTE | 2019-01-21 06:40 | NUR ---
PATIENT TO SURGERY
[2019-01-21] MEDS: INSULIN HUMULIN R 100 UNIT/ML 3ML SQ SCH ×3 (07:00→16:30)
[2019-01-21 07:30] VITALS: BP 136/85
[2019-01-21] MEDS: FAMOTIDINE/PF 20 MG/2 ML VIAL IV SCH (09:27)
[2019-01-21] MEDS: ZOSYN 3.375GM+NS 50ML 50 ML IV SCH ×2 (09:27→16:28)
[2019-01-21] MEDS: TBO-FILGRASTIM 480 MCG/0.8 ML ML SQ SCH (09:27)
[2019-01-21] MEDS: VANCOMYCIN 1GM+NS 250ML 250 ML IV SCH (09:28)
[2019-01-21] MEDS: ENOXAPARIN SODIUM 40 MG/0.4 ML SYRINGE SQ SCH (09:28)
--- NOTE | 2019-01-21 10:00 | NUR ---
cm note met with patient and states agreeable to snf prefers [facility] as 1st choice, choice letter obtained and referral faxed. to [facility].
[2019-01-21 11:00] VITALS: BP 117/58
[2019-01-21] MEDS ORDERED: LORAZEPAM 0.5 MG TABLET PO PRN (14:00)
[2019-01-21 16:00] VITALS: BP 152/67
[2019-01-21] MEDS: LACTATED RINGERS 1000ML 1,000 ML IV SCH (16:31)
--- NOTE | 2019-01-21 19:21 | NUR ---
DISCHARGE Report called to Vicente Deluna, report given to DONALD Ruiz. Call made to Dr. Carballo for clarification, ok to BARBARA Huang and Sergio, leave Joseph Kamara made aware. Awaiting transportation.
[2019-01-21] MEDS ORDERED: HEPARIN SODIUM/PF 100UNIT/ML 5ML SYRINGE IV SCH (19:36)
--- NOTE | 2019-01-21 20:15 | NUR ---
Right poratacath was flushed with NS followed by heparin flush and flushed again with NS .Needle removed and dressing done.No bleeding noted.Dressing applied and pt tolerated procedure well.
== END 2019-01-21 21:15 | DRG 871 ==
LOC: EDH 07:49 → EDHIP 11:26 → 4CH 01-18 02:56
PROVIDERS: ADMIT Internal Medicine Hematology & Oncology; ATTEND Internal Medicine Hematology & Oncology
DX: A41.50 Gram-negative sepsis, unspecified (principal); E11.10 Type 2 diabetes mellitus with ketoacidosis without coma; R65.21 Severe sepsis with septic shock; D61.810 Antineoplastic chemotherapy induced pancytopenia; C56.9 Malignant neoplasm of unspecified ovary; J90 Pleural effusion, not elsewhere classified; C79.9 Secondary malignant neoplasm of unspecified site; E86.0 Dehydration; I11.9 Hypertensive heart disease without heart failure; K21.9 Gastro-esophageal reflux disease without esophagitis; T45.1X5A Adverse effect of antineoplastic and immunosuppressive drugs, initial encounter; Y92.89 Other specified places as the place of occurrence of the external cause; Z85.43 Personal history of malignant neoplasm of ovary; Z90.710 Acquired absence of both cervix and uterus; Z92.21 Personal history of antineoplastic chemotherapy; Z90.79 Acquired absence of other genital organ(s); Z90.722 Acquired absence of ovaries, bilateral
CPT/HCPCS: 36415; 36600; 71045; 78580; 80048; 80053; 80202; 81001; 82010; 82550; 82803; 82948; 83605; 83735; 83880; 84100; 84132; 84484; 85014; 85018; 85025; 85027; 85378; 85610; 85730; 87040; 87071; 87077; 87186; 87205; 87804; 93005; 93970; 94640; 97039; A9540; G0378; J1642; J1650; J1815; J2543; J3370; J3475; J3480; J3490; J7030; J7042; J7120

== ENCOUNTER 2019-02-16 09:55 | Inpatient (IN) | payer OTHER ==
[~2019-02-16] VITALS: Ht 152.4 cm; Wt 73.8 kg
[~2019-02-16 09:55] MED LIST changes: +LEVO500T89 PO; +LOSA1TAB37 PO; -LOSA50TA64 PO; +MEGE400O20 PO; +NYST5ORA7 PO
[2019-02-16 10:32] LABS: BASOPHILS % (AUTO) 0.8 % (0.0-5.0); EOSINOPHILS % (AUTO) 0.2 % (0.0-8.0); HEMATOCRIT 30.8 % (36-48); LYMPHOCYTES % (AUTO) 10.6 % (21.0-51.0); MEAN CORPUSCULAR HEMOGLOBIN 30.6 pg (27.0-33.0); MEAN CORPUSCULAR HGB CONC 34.4 g/dL (32.0-36.0); NEUTROPHILS % (AUTO) 81.4 % (40.0-77.0); NUCLEATED RED BLOOD CELLS 0.1 % (0.0-0.19); PLATELET COUNT (AUTO) 317 K/uL (130-400); RED BLOOD CELL COUNT(AUTO) 3.46 MIL/uL (4.00-5.50); RED CELL DISTRIBUTION WIDTH 16.9 % (11.0-15.5); WHITE BLOOD COUNT (AUTO) 12.2 K/uL (4.8-10.8)
[2019-02-16 10:38] LABS: CREATININE 0.8 mg/dL (0.5-1.5); POTASSIUM 3.8 mmol/L (3.5-5.1)
[2019-02-16 10:42] LABS: ALBUMIN 2.6 g/dL (3.5-5.0); BILIRUBIN,TOTAL 0.8 mg/dL (0.2-1.0); TOTAL PROTEIN, SERUM 6.7 g/dL (6.0-8.3)
[2019-02-16 10:59] LABS: APPEARANCE,URINE Cloudy (CLEAR); BILIRUBIN,URINE Negative (NEGATIVE); COLOR,URINE Yellow (YELLOW); GLUCOSE, URINE (UA) 500 mg/dL (NEGATIVE); KETONES,URINE 15 mg/dL (NEGATIVE); LEUKOCYTE ESTERASE ,URINE Small (NEGATIVE); NITRATE,URINE Negative (NEGATIVE); OCCULT BLOOD,URINE Negative (NEGATIVE); PROTEIN,URINE POS 1+ mg/dL (NEGATIVE)
[2019-02-16] MEDS ORDERED: CEFTRIAXONE SODIUM 1 GM ONE (12:39)
[2019-02-16] MEDS ORDERED: SODIUM CHLORIDE 0.9% 100 ML IV ONE (12:39)
[2019-02-16] MEDS ORDERED: LEVOFLOXACIN 500 MG/D5W 100 ML 100 ML ONE (13:04)
[2019-02-16] MEDS ORDERED: KETOROLAC TROMETHAMINE 15MG/ML ONE (13:11)
[2019-02-16 13:27] LABS: BACTERIA,URINE Many /HPF (None Seen); RBC,URINE None Seen /HPF (0-1)
[2019-02-16] MEDS ORDERED: TRAMADOL HCL 50 MG TABLET ONE (14:30)
[2019-02-16 15:57] LABS: INR 1.01 (0.85-1.15); PARTIAL THROMBOPLASTIN TIME 27.9 SEC (26.3-35.5); PROTHROMBIN TIME 10.4 SEC (9.6-11.6)
[2019-02-16] MEDS ORDERED: ONDANSETRON HCL 4 MG/2 ML VIAL ONE (16:15)
[2019-02-16] MEDS ORDERED: MORPHINE SULFATE 2 MG/ML 1ML SYG ONE (16:16)
[2019-02-16] MEDS ORDERED: SODIUM CHLORIDE 0.9% 1000ML 1,000 ML IV ONE (16:17)
[2019-02-16] MEDS ORDERED: ONDANSETRON HCL 4 MG/2 ML VIAL IVP PRN (17:00)
[2019-02-16] MEDS: SODIUM CHLORIDE 0.9% 1000ML 1,000 ML IV SCH (17:00)
[2019-02-16 18:50] VITALS: BP 147/84
--- NOTE | 2019-02-16 20:00 | NUR ---
admission patient received from ER. assessed and took picture of rash in perineal area, skin barrier cream applied, patient on adult briefs. moves patient every 2 hours.
[2019-02-16] MEDS: MORPHINE SULFATE 2 MG/ML 1ML SYG IVP PRN (22:57)
[2019-02-16] MEDS ORDERED: APIX2.5T PO (23:14)
[2019-02-16] MEDS ORDERED: FAMO20TA8 PO (23:15)
[2019-02-16] MEDS ORDERED: POTA-79 PO (23:24)
[2019-02-16] MEDS ORDERED: LEVO250T59 PO (23:24)
[2019-02-16] MEDS ORDERED: EMPA25TA PO (23:24)
[2019-02-16] MEDS ORDERED: GLIP10TA9 PO (23:24)
[2019-02-16] MEDS ORDERED: FURO20TA4 PO (23:24)
[2019-02-16] MEDS ORDERED: SITA100T12 PO (23:24)
[2019-02-16] MEDS ORDERED: LISI40TA4 PO (23:24)
[2019-02-16] MEDS ORDERED: SIMV-43 PO (23:24)
[2019-02-16] MEDS ORDERED: MELO-108 PO (23:24)
[2019-02-16] MEDS ORDERED: MEGE20TA PO (23:24)
[2019-02-16 23:30] VITALS: BP 112/42
[2019-02-17] VITALS (10 sets, daily range): BP systolic 144–165; BP diastolic 52–115
[2019-02-17] MEDS: MORPHINE SULFATE 2 MG/ML 1ML SYG IVP PRN ×4 (01:53→13:31)
[2019-02-17] MEDS: SODIUM CHLORIDE 0.9% 1000ML 1,000 ML IV SCH ×3 (02:56→23:41)
[2019-02-17] MEDS: METFORMIN HCL 500 MG TABLET PO SCH ×2 (08:00→17:00)
--- NOTE | 2019-02-17 08:03 | NUR ---
AT 0803 PATIENT REFUSED MORPHINE FROM SUYAPA FUNEZ RN. MED WASTED BY SUYAPA BENNETT AND MYSELF. WILL MONITOR PATIENT FOR PAIN
[2019-02-17] MEDS: FUROSEMIDE 20 MG TABLET PO SCH (09:00)
[2019-02-17] MEDS: FAMOTIDINE 20MG TAB 20 MG TAB PO SCH ×2 (09:00→21:21)
[2019-02-17] MEDS: MEGESTROL ACETATE 20 MG PO SCH (09:00)
[2019-02-17] MEDS: LISINOPRIL 40 MG TABLET PO SCH (09:00)
[2019-02-17] MEDS: **HM** JARDIANCE 25MG PO SCH (09:00)
[2019-02-17] MEDS: MELOXICAM 7.5 MG TABLET PO SCH (09:00)
[2019-02-17] MEDS: LINAGLIPTIN 5 MG TABLET PO SCH (09:00)
[2019-02-17] MEDS: APIXABAN 2.5 MG TABLET PO SCH ×2 (09:00→21:21)
[2019-02-17] MEDS: POTASSIUM CHLORIDE 20 MEQ ERTAB PO SCH ×2 (09:00→21:21)
[2019-02-17] MEDS: MULTIVITAMINS/MINERALS/IRO TAB PO SCH (09:00)
[2019-02-17] MEDS: LOSARTAN/HYDROCHLOROTHIAZIDE 50-12.5MG TABLET PO SCH (09:00)
[2019-02-17] MEDS ORDERED: LEVOFLOXACIN 500 MG/D5W 100 ML 100 ML IV SCH (13:00)
[2019-02-17] MEDS ORDERED: CEFTRIAXONE SODIUM 1 GM IVP SCH (13:00)
--- NOTE | 2019-02-17 13:10 | NUR ---
DC PLAN PATIENT LIVES ALONE. PREVIOUSLY NO SERVICES OR DME'S. PATIENT SAYING SOMETHING ABOUT PROVIDER. NO IDEA IF APPLIED FOR MEDICAID. SON IN ROOM MENTIONED HOSPICE. EXPLAINED THAT WE WILL WAIT FOR DR. BASS RECOMMENDATIONS. Addendum: 02/17/19 at 1318 by SALVADOR JEAN BAPTISTE RN CM Amended: Links added.
[2019-02-17] MEDS: ZOLPIDEM TARTRATE 5 MG TAB PO PRN (21:20)
[2019-02-17] MEDS: SIMVASTATIN 20 MG TABLET PO SCH (21:21)
[2019-02-17 21:43] LABS: ABG BASE EXCESS -6.7 mmol/L (-2.0-3.0); ABG OXYGEN SATURATION 96.9 % (95.0-99.0); ABG PCO2 38 mmHg (32-45)
[2019-02-17] MEDS ORDERED: RACEPINEPHRINE HCL 2.25% 0.5 ML NEB SOLN ONE ×2 (21:48→21:51)
[2019-02-17] MEDS ORDERED: RACEPINEPHRINE HCL 2.25% 0.5 ML NEB SOLN NEB ONE ×2 (22:00)
[2019-02-17] MEDS ORDERED: ALBUTEROL SULFATE 0.083% 2.5 MG/3 ML INH IH ONE ×3 (22:08)
[2019-02-17] MEDS ORDERED: IPRATROPIUM/ALBUTEROL SULFATE 3 ML SOLUTION IH ONE (22:30)
--- NOTE | 2019-02-17 22:30 | NUR ---
RAPID RESPONSE AT ~2122 PATIENT WAS GIVEN HER SCHEDULED EVENING MEDICATIONS, ELIQUIS 2.5MG, PEPCID 20MG, Zocor 20mg, Ambien 10mg, and K-Dur 20meq tab. PATIENT TOOK HER ELIQUIS, PEPCID, ZOCOR, AND AMBIEN TOGETHER. PATIENT THEN TOOK HER K-DUR SEPARATELY. AFTER TAKING THE K-DUR TAB PATIENT STARTED COUGHING AND REPORTED SHE "FELT PILL" IN HER THROAT. PATIENT CONTINUED TO COUGH, STARTED TO SPIT UP PARTS OF THE DISSOLVED PILL AND BECAME DYSPNEIC. RAPID RESPONSE WAS CALLED AT 2129. DR. BASS WAS NOTIFIED AND ORDERS WERE GIVEN TO TRANSFER PATIENT TO ICU. PATIENT'S SON WAS ALSO NOTIFIED AT 2215
[2019-02-17 22:49] LABS: BASOPHILS % (AUTO) 0.5 % (0.0-5.0); EOSINOPHILS % (AUTO) 0.2 % (0.0-8.0); HEMATOCRIT 32.7 % (36-48); LYMPHOCYTES % (AUTO) 18.2 % (21.0-51.0); MEAN CORPUSCULAR HEMOGLOBIN 30.8 pg (27.0-33.0); MEAN CORPUSCULAR HGB CONC 34.3 g/dL (32.0-36.0); MEAN CORPUSCULAR VOLUME 89.7 fL (79-99); MONOCYTES % (AUTO) 6.4 % (3.0-13.0); NEUTROPHILS % (AUTO) 74.7 % (40.0-77.0); PLATELET COUNT (AUTO) 441 K/uL (130-400); RED BLOOD CELL COUNT(AUTO) 3.64 MIL/uL (4.00-5.50); RED CELL DISTRIBUTION WIDTH 16.5 % (11.0-15.5); WHITE BLOOD COUNT (AUTO) 21.2 K/uL (4.8-10.8)
[2019-02-17 22:56] LABS: CREATININE 0.8 mg/dL (0.5-1.5); MAGNESIUM 1.4 mg/dL (1.80-2.40); PHOSPHORUS 5.1 mg/dL (2.5-4.9); POTASSIUM 3.8 mmol/L (3.5-5.1)
--- NOTE | 2019-02-17 23:00 | NUR ---
2208 Received patient from 3rd on Bipap. 20 g and 22g IV's started to left upper arm, Port a cath accessed. Benchmark consulted as per Dr Carballo' s orders. Back to back nebs given. Initial assessment done. Son visited briefly, went home. States patient told him she felt better.
[2019-02-17 23:46] LABS: ABG BASE EXCESS -7.4 mmol/L (-2.0-3.0); ABG HCO3 15.9 mmol/L (21.0-28.0); ABG OXYGEN SATURATION 99.4 % (95.0-99.0); ABG PCO2 27 mmHg (32-45)
[2019-02-18] VITALS (25 sets, daily range): BP systolic 118–195; BP diastolic 52–99
[2019-02-18] MEDS ORDERED: SODIUM BICARB 8.4% 50ML SYRINGE IVP ONE (00:15)
[2019-02-18] MEDS ORDERED: VANCOMYCIN PROTOCOL PER PHARMACY IV ONE (00:15)
[2019-02-18] MEDS ORDERED: METHYLPREDNISOLONE SOD SUCC 125MG/2ML VIAL IVP ONE (00:15)
[2019-02-18] MEDS ORDERED: MAGNESIUM 2GM PREMIX 50ML 50 ML IV PRN (00:15)
[2019-02-18] MEDS ORDERED: METHYLPREDNISOLONE SOD SUCC 125MG/2ML VIAL ONE (00:45)
[2019-02-18] MEDS ORDERED: VANCOMYCIN 1GM+NS 250ML 250 ML IV ONE (01:00)
--- NOTE | 2019-02-18 01:00 | NUR ---
Heartrate down to 110's. Patient sleeping. Fi02 down to 30%.
[2019-02-18] MEDS ORDERED: MAGNESIUM 2GM PREMIX 50ML 50 ML IV ONE (01:01)
[2019-02-18] MEDS: ZOSYN 3.375GM+NS 50ML 50 ML IV SCH ×2 (01:57→09:45)
--- NOTE | 2019-02-18 04:00 | NUR ---
Sleeping long intervals. Denies pain, sob. Heartrate down to 90's, O2 sat 99 to 100.
[2019-02-18 04:54] LABS: CREATININE 0.9 mg/dL (0.5-1.5); MAGNESIUM 1.9 mg/dL (1.80-2.40); PHOSPHORUS 3.5 mg/dL (2.5-4.9); POTASSIUM 4.1 mmol/L (3.5-5.1)
[2019-02-18 05:01] LABS: BASOPHILS % (AUTO) 0.1 % (0.0-5.0); HEMATOCRIT 29.3 % (36-48); LYMPHOCYTES % (AUTO) 2.6 % (21.0-51.0); MEAN CORPUSCULAR HEMOGLOBIN 30.5 pg (27.0-33.0); MEAN CORPUSCULAR HGB CONC 34.1 g/dL (32.0-36.0); MEAN CORPUSCULAR VOLUME 89.4 fL (79-99); NEUTROPHILS % (AUTO) 95.3 % (40.0-77.0); PLATELET COUNT (AUTO) 310 K/uL (130-400); RED BLOOD CELL COUNT(AUTO) 3.28 MIL/uL (4.00-5.50); RED CELL DISTRIBUTION WIDTH 16.3 % (11.0-15.5); WHITE BLOOD COUNT (AUTO) 17.2 K/uL (4.8-10.8)
[2019-02-18 05:18] LABS: ABG BASE EXCESS 0.2 mmol/L (-2.0-3.0); ABG HCO3 21.3 mmol/L (21.0-28.0); ABG OXYGEN SATURATION 98.6 % (95.0-99.0); ABG PCO2 26 mmHg (32-45)
[2019-02-18] MEDS: INSULIN HUMULIN R 100 UNIT/ML 3ML SQ SCH ×4 (06:15→20:55)
[2019-02-18] MEDS: IPRATROPIUM 0.5 MG/2.5 ML INH IH SCH ×4 (07:08→23:25)
[2019-02-18] MEDS: METFORMIN HCL 500 MG TABLET PO SCH ×2 (08:18→16:34)
[2019-02-18] MEDS: METHYLPREDNISOLONE SOD SUCC 125MG/2ML VIAL IVP SCH ×2 (08:18→16:33)
[2019-02-18] MEDS: LINAGLIPTIN 5 MG TABLET PO SCH (08:41)
[2019-02-18] MEDS: GLIPIZIDE 5 MG TABLET PO SCH (08:42)
[2019-02-18] MEDS: FAMOTIDINE 20MG TAB 20 MG TAB PO SCH ×2 (08:42→20:33)
[2019-02-18] MEDS: MULTIVITAMINS/MINERALS/IRO TAB PO SCH (08:42)
[2019-02-18] MEDS: LOSARTAN/HYDROCHLOROTHIAZIDE 50-12.5MG TABLET PO SCH (08:42)
[2019-02-18] MEDS: APIXABAN 2.5 MG TABLET PO SCH ×2 (08:42→20:33)
[2019-02-18] MEDS: LISINOPRIL 40 MG TABLET PO SCH (08:43)
[2019-02-18] MEDS: FUROSEMIDE 20 MG TABLET PO SCH (08:43)
[2019-02-18] MEDS: MELOXICAM 7.5 MG TABLET PO SCH (08:43)
[2019-02-18] MEDS: POTASSIUM CHLORIDE 20 MEQ ERTAB PO SCH ×2 (08:44→20:35)
[2019-02-18] MEDS: **HM** JARDIANCE 25MG PO SCH (08:49)
[2019-02-18] MEDS: MEGESTROL ACETATE 20 MG PO SCH (08:50)
[2019-02-18] MEDS: SODIUM CHLORIDE 0.9% 1000ML 1,000 ML IV SCH ×2 (09:55→18:28)
[2019-02-18] MEDS ORDERED: PHARMACY COMMUNICATION MISC SCH (12:15)
[2019-02-18] MEDS ORDERED: BISACODYL 10 MG SUPP.RECT RC PRN (12:15)
[2019-02-18] MEDS ORDERED: COMPOUND PO MISCELLANEOUS 1 EACH MISC MISC PRN (12:30)
[2019-02-18] MEDS: MAG HYDROX/AL HYDROX/SIMETH 30 ML, LIDOCAINE HCL 2% VISCOUS 30 ML, DIPHENHYDRAMINE HCL ... PO SCH ×6 (12:30→20:32)
[2019-02-18] MEDS ORDERED: ACETAMINOPHEN ELIXIR 650 MG/20.3 ML UDCUP PEG PRN (15:30)
--- NOTE | 2019-02-18 15:31 | NUR ---
RD Notification Pt admitted for Abdomen pain, UTI. Pt with Hx of stage III Ovarian CA. Pt with poor appetite, receiving Glucerna with meals. RD recommends to add appetite stimulant and 30mLs sugar-free ProMod TID. Pt LBM 02/15/19; Recommend stool softener/laxative as medically feasible. Pt monitored labs: Na 127, Cl 91, Glu 325, Alb 2.6. RD to continue to monitor. Please notify RD as additional nutrition concerns arise. Thank you. Addendum: 02/18/19 at [address] Amended: Links added.
[2019-02-18] MEDS: CEFTRIAXONE SODIUM 1 GM IVP SCH (16:33)
--- NOTE | 2019-02-18 20:00 | NUR ---
ASSESSMENT PT RESTING QUIETLY IN BED. CURRENTLY DENIES ANY PAIN OR DISCOMFORT. IV FLUIDS INFUSING WITHOUT DIFFICULTY. PT AAOX3, FOLLOWS COMMANDS, RESPONDS APPROPRIATELY. CALLBELL WITHIN REACH, WHITE BOARD UP-DATE. BEDSIDE MONITOR REVIEWED AND ADJUSTED. ASSESSMENT COMPLETED, SEE FLOW SHEET.
[2019-02-18] MEDS: VANCOMYCIN 1GM+NS 250ML 250 ML IV SCH (20:34)
[2019-02-18] MEDS: SIMVASTATIN 20 MG TABLET PO SCH (20:39)
[2019-02-19] VITALS (16 sets, daily range): BP systolic 131–198; BP diastolic 40–113
[2019-02-19] MEDS: METHYLPREDNISOLONE SOD SUCC 125MG/2ML VIAL IVP SCH ×2 (01:03→08:52)
[2019-02-19] MEDS: MAG HYDROX/AL HYDROX/SIMETH 30 ML, LIDOCAINE HCL 2% VISCOUS 30 ML, DIPHENHYDRAMINE HCL ... PO SCH ×9 (04:29→21:06)
[2019-02-19] MEDS: SODIUM CHLORIDE 0.9% 1000ML 1,000 ML IV SCH ×2 (04:30→16:45)
[2019-02-19] MEDS: IPRATROPIUM 0.5 MG/2.5 ML INH IH SCH ×4 (06:13→23:14)
[2019-02-19] MEDS: INSULIN HUMULIN R 100 UNIT/ML 3ML SQ SCH ×4 (06:34→21:03)
[2019-02-19 06:41] LABS: CREATININE 1.2 mg/dL (0.5-1.5); MAGNESIUM 2.1 mg/dL (1.80-2.40); POTASSIUM 4.1 mmol/L (3.5-5.1)
[2019-02-19 07:09] LABS: MEAN CORPUSCULAR HEMOGLOBIN 30.7 pg (27.0-33.0); MEAN CORPUSCULAR HGB CONC 34.3 g/dL (32.0-36.0); MEAN CORPUSCULAR VOLUME 89.4 fL (79-99); PLATELET COUNT (AUTO) 384 K/uL (130-400); RED BLOOD CELL COUNT(AUTO) 3.36 MIL/uL (4.00-5.50); RED CELL DISTRIBUTION WIDTH 16.8 % (11.0-15.5); WHITE BLOOD COUNT (AUTO) 16.8 K/uL (4.8-10.8)
[2019-02-19] MEDS: APIXABAN 2.5 MG TABLET PO SCH ×2 (08:51→20:59)
[2019-02-19] MEDS: FAMOTIDINE 20MG TAB 20 MG TAB PO SCH ×2 (08:51→20:59)
[2019-02-19] MEDS: LOSARTAN 50 MG TABLET PO SCH (08:51)
[2019-02-19] MEDS: LISINOPRIL 40 MG TABLET PO SCH (08:51)
[2019-02-19] MEDS: GLIPIZIDE 5 MG TABLET PO SCH (08:52)
[2019-02-19] MEDS: POTASSIUM CHLORIDE 20 MEQ ERTAB PO SCH ×2 (08:52→20:59)
[2019-02-19] MEDS: MULTIVITAMINS/MINERALS/IRO TAB PO SCH (08:53)
[2019-02-19] MEDS: MELOXICAM 7.5 MG TABLET PO SCH (08:53)
[2019-02-19] MEDS: METFORMIN HCL 500 MG TABLET PO SCH ×2 (08:53→16:45)
[2019-02-19] MEDS: LINAGLIPTIN 5 MG TABLET PO SCH (08:59)
[2019-02-19] MEDS: MEGESTROL ACETATE 20 MG PO SCH (09:00)
[2019-02-19] MEDS: **HM** JARDIANCE 25MG PO SCH (09:00)
[2019-02-19] MEDS ORDERED: GUAIFENESIN-DM 200/20 MG 10 ML PO PRN (12:30)
[2019-02-19] MEDS: METHYLPREDNISOLONE SOD SUCC 40MG/ML 1ML IVP SCH (16:45)
[2019-02-19] MEDS: CEFTRIAXONE SODIUM 1 GM IVP SCH (16:45)
--- NOTE | 2019-02-19 18:47 | NUR ---
TRANSFER REPORT Report phoned to DONALD Whitaker. Pending transfer to room 314.
[2019-02-19] MEDS: SIMVASTATIN 20 MG TABLET PO SCH (20:59)
[2019-02-19] MEDS: VANCOMYCIN 1GM+NS 250ML 250 ML IV SCH (20:59)
[2019-02-19] MEDS: ACETAMINOPHEN-CODEINE 300/30MG TAB PO PRN (21:23)
--- NOTE | 2019-02-19 21:23 | NUR ---
PAIN Pt medicated with Tylenol # 3 for c/o rt lower quadrant pain.
--- NOTE | 2019-02-19 22:23 | NUR ---
MED EFFECT Pt resting quietly,denies pain this time.SHe refused bath as per loop tender report.
[2019-02-20] VITALS (7 sets, daily range): BP systolic 157–176; BP diastolic 72–83
[2019-02-20] MEDS: METHYLPREDNISOLONE SOD SUCC 40MG/ML 1ML IVP SCH ×3 (00:03→21:28)
[2019-02-20] MEDS: SODIUM CHLORIDE 0.9% 1000ML 1,000 ML IV SCH ×3 (01:09→21:00)
[2019-02-20] MEDS: IPRATROPIUM 0.5 MG/2.5 ML INH IH SCH ×5 (01:22→23:11)
[2019-02-20] MEDS: ZOLPIDEM TARTRATE 5 MG TAB PO PRN ×2 (01:23→21:29)
--- NOTE | 2019-02-20 01:27 | NUR ---
RITO Colon given as per pt request for sleep.
--- NOTE | 2019-02-20 02:14 | NUR ---
MED EFFECT Pt sleeping in bed,respirations even and unlabored.
[2019-02-20] MEDS: MAG HYDROX/AL HYDROX/SIMETH 30 ML, LIDOCAINE HCL 2% VISCOUS 30 ML, DIPHENHYDRAMINE HCL ... PO SCH ×9 (05:17→19:42)
[2019-02-20] MEDS: INSULIN HUMULIN R 100 UNIT/ML 3ML SQ SCH ×4 (06:02→21:28)
[2019-02-20] MEDS ORDERED: MULTIVITAMIN TABLET ONE (08:33)
[2019-02-20] MEDS: FAMOTIDINE 20MG TAB 20 MG TAB PO SCH ×2 (08:37→19:43)
[2019-02-20] MEDS: GLIPIZIDE 5 MG TABLET PO SCH (08:37)
[2019-02-20] MEDS: LOSARTAN 50 MG TABLET PO SCH (08:37)
[2019-02-20] MEDS: MELOXICAM 7.5 MG TABLET PO SCH (08:37)
[2019-02-20] MEDS: LINAGLIPTIN 5 MG TABLET PO SCH (08:37)
[2019-02-20] MEDS: METFORMIN HCL 500 MG TABLET PO SCH ×2 (08:38→17:53)
[2019-02-20] MEDS: LISINOPRIL 40 MG TABLET PO SCH (08:38)
[2019-02-20] MEDS: APIXABAN 2.5 MG TABLET PO SCH ×2 (08:38→19:42)
[2019-02-20] MEDS: **HM** JARDIANCE 25MG PO SCH (08:39)
[2019-02-20] MEDS: POTASSIUM CHLORIDE 20 MEQ ERTAB PO SCH ×2 (08:39→19:43)
[2019-02-20] MEDS: MEGESTROL ACETATE 20 MG PO SCH (08:39)
[2019-02-20] MEDS: MULTIVITAMINS/MINERALS/IRO TAB PO SCH (08:40)
[2019-02-20] MEDS ORDERED: ZOSYN 3.375GM+NS 50ML 50 ML IV ONE (12:15)
[2019-02-20] MEDS: ZOSYN 3.375GM+NS 50ML 50 ML IV SCH ×2 (13:00→19:41)
[2019-02-20] MEDS: ACETAMINOPHEN-CODEINE 300/30MG TAB PO PRN ×2 (13:50→23:05)
[2019-02-20] MEDS: VANCOMYCIN 1GM+NS 250ML 250 ML IV SCH (19:42)
[2019-02-20] MEDS: SIMVASTATIN 20 MG TABLET PO SCH (19:43)
[2019-02-21] MEDS: MAG HYDROX/AL HYDROX/SIMETH 30 ML, LIDOCAINE HCL 2% VISCOUS 30 ML, DIPHENHYDRAMINE HCL ... PO SCH ×9 (03:48→19:51)
[2019-02-21 04:00] VITALS: BP 145/90
[2019-02-21] MEDS: ZOSYN 3.375GM+NS 50ML 50 ML IV SCH ×3 (04:37→19:50)
[2019-02-21 05:18] LABS: HEMATOCRIT 39.8 % (36-48); MEAN CORPUSCULAR HEMOGLOBIN 30.5 pg (27.0-33.0); MEAN CORPUSCULAR HGB CONC 33.4 g/dL (32.0-36.0); MEAN CORPUSCULAR VOLUME 91.3 fL (79-99); PLATELET COUNT (AUTO) 194 K/uL (130-400); RED BLOOD CELL COUNT(AUTO) 4.36 MIL/uL (4.00-5.50); RED CELL DISTRIBUTION WIDTH 17.2 % (11.0-15.5); WHITE BLOOD COUNT (AUTO) 12.8 K/uL (4.8-10.8)
[2019-02-21 05:19] LABS: CREATININE 0.8 mg/dL (0.5-1.5); POTASSIUM 4.4 mmol/L (3.5-5.1)
[2019-02-21] MEDS: INSULIN HUMULIN R 100 UNIT/ML 3ML SQ SCH ×4 (05:39→19:52)
[2019-02-21 07:00] VITALS: BP 163/74
[2019-02-21] MEDS: SODIUM CHLORIDE 0.9% 1000ML 1,000 ML IV SCH ×2 (07:00→17:00)
[2019-02-21] MEDS: IPRATROPIUM 0.5 MG/2.5 ML INH IH SCH ×2 (07:18→12:00)
[2019-02-21] MEDS: APIXABAN 2.5 MG TABLET PO SCH ×2 (08:26→19:51)
[2019-02-21] MEDS: METHYLPREDNISOLONE SOD SUCC 40MG/ML 1ML IVP SCH (08:26)
[2019-02-21] MEDS: FAMOTIDINE 20MG TAB 20 MG TAB PO SCH ×2 (08:27→19:50)
[2019-02-21] MEDS: MULTIVITAMINS/MINERALS/IRO TAB PO SCH (08:27)
[2019-02-21] MEDS: LINAGLIPTIN 5 MG TABLET PO SCH (08:27)
[2019-02-21] MEDS: METFORMIN HCL 500 MG TABLET PO SCH ×2 (08:27→16:24)
[2019-02-21] MEDS: MELOXICAM 7.5 MG TABLET PO SCH (08:27)
[2019-02-21] MEDS: LISINOPRIL 40 MG TABLET PO SCH (08:28)
[2019-02-21] MEDS: **HM** JARDIANCE 25MG PO SCH (08:28)
[2019-02-21] MEDS: LOSARTAN 50 MG TABLET PO SCH (08:28)
[2019-02-21] MEDS: GLIPIZIDE 5 MG TABLET PO SCH (08:28)
[2019-02-21] MEDS: MEGESTROL ACETATE 20 MG PO SCH (08:29)
[2019-02-21] MEDS: POTASSIUM CHLORIDE 20 MEQ ERTAB PO SCH ×2 (08:29→19:50)
[2019-02-21] MEDS: ACETAMINOPHEN-CODEINE 300/30MG TAB PO PRN ×2 (08:31→16:24)
[2019-02-21 12:00] VITALS: BP 160/91
[2019-02-21] MEDS ORDERED: HYDRALAZINE HCL 20 MG/ML VIAL IV PRN (12:15)
--- NOTE | 2019-02-21 13:00 | NUR ---
CM Note: [facility] pending ins auth CM met with pt discussed Dr Carballo's rec for short term placement rehab, pt agreeable, VAUGHN signed for [facility]. Faxed order, clinicals, PT, and PAS[facility], confirmation received. Spoke to [facility] will come eval pt. Pt pending ins auth and acceptance. Primary nurse aware. CM to cont to follow up.
[2019-02-21] MEDS ORDERED: IPRATROPIUM 0.5 MG/2.5 ML INH IH PRN (14:30)
[2019-02-21 16:00] VITALS: BP 154/68
--- NOTE | 2019-02-21 17:36 | NUR ---
nutrition f/u: Pt with poor po intake however states there is no nutrition concerns, she is ok with her diet and nutrition supplement TID. Pt encouraged to continue with Promod nutrition supplementation. Pt verbalize understanding. RD to continue monitoring pt's nutritional status. Recommend continuing current diet therapy. Addendum: 02/21/19 at [address] Amended: Links added.
[2019-02-21] MEDS: SIMVASTATIN 20 MG TABLET PO SCH (19:50)
[2019-02-21 20:22] VITALS: BP 152/72
[2019-02-21] MEDS: ZOLPIDEM TARTRATE 5 MG TAB PO PRN (21:18)
[2019-02-21] MEDS: VANCOMYCIN 1GM+NS 250ML 250 ML IV SCH (21:18)
[2019-02-21] MEDS ORDERED: COMPOUND IV REFRIGERATED 1 EACH IVSOLN MISC PRN (22:00)
[2019-02-21 23:44] VITALS: BP 158/74
[2019-02-22] MEDS: SODIUM CHLORIDE 0.9% 1000ML 1,000 ML IV SCH ×2 (03:00→13:00)
[2019-02-22] MEDS: MAG HYDROX/AL HYDROX/SIMETH 30 ML, LIDOCAINE HCL 2% VISCOUS 30 ML, DIPHENHYDRAMINE HCL ... PO SCH ×12 (03:37→19:33)
[2019-02-22] MEDS: ZOSYN 3.375GM+NS 50ML 50 ML IV SCH ×3 (04:13→19:32)
[2019-02-22 04:29] VITALS: BP 148/78
[2019-02-22 05:44] LABS: HEMATOCRIT 31.5 % (36-48); MEAN CORPUSCULAR HGB CONC 34.2 g/dL (32.0-36.0); MEAN CORPUSCULAR VOLUME 90.6 fL (79-99); NUCLEATED RED BLOOD CELLS 0.1 % (0.0-0.19); PLATELET COUNT (AUTO) 358 K/uL (130-400); RED BLOOD CELL COUNT(AUTO) 3.48 MIL/uL (4.00-5.50); RED CELL DISTRIBUTION WIDTH 17.2 % (11.0-15.5)
[2019-02-22] MEDS: INSULIN HUMULIN R 100 UNIT/ML 3ML SQ SCH ×3 (05:52→16:49)
[2019-02-22 05:53] LABS: CREATININE 0.8 mg/dL (0.5-1.5); POTASSIUM 4.7 mmol/L (3.5-5.1)
[2019-02-22 06:01] LABS: BAND NEUTROPHILS % (MANUAL) 4 % (0-2); EOSINOPHILS % (MANUAL) 1 % (1-6); LYMPHOCYTES % (MANUAL) 15 % (22-44); MAN.DIFF COMMENT-IMPRESSION MANUAL DIFFERENTIAL; MONOCYTES % (MANUAL) 9 % (2-9); PLATELET MORPHOLOGY COMMENT ADEQUATE; REACTIVE LYMPHOCYTES 2 % (0-0); SEGMENTED NEUTROPHILS % 69 % (40-70)
[2019-02-22] MEDS: APIXABAN 2.5 MG TABLET PO SCH ×2 (08:45→19:33)
[2019-02-22] MEDS: VANCOMYCIN 750MG + NS 250 ML IV SCH ×4 (08:45→19:32)
[2019-02-22] MEDS: MELOXICAM 7.5 MG TABLET PO SCH (08:46)
[2019-02-22] MEDS: GLIPIZIDE 5 MG TABLET PO SCH (08:46)
[2019-02-22] MEDS: POTASSIUM CHLORIDE 20 MEQ ERTAB PO SCH ×2 (08:46→19:33)
[2019-02-22] MEDS: LOSARTAN 50 MG TABLET PO SCH (08:46)
[2019-02-22] MEDS: LINAGLIPTIN 5 MG TABLET PO SCH (08:46)
[2019-02-22] MEDS: METFORMIN HCL 500 MG TABLET PO SCH ×2 (08:46→16:44)
[2019-02-22] MEDS: LISINOPRIL 40 MG TABLET PO SCH (08:46)
[2019-02-22 08:47] VITALS: BP 153/72
[2019-02-22] MEDS: MEGESTROL ACETATE 20 MG PO SCH (08:47)
[2019-02-22] MEDS: **HM** JARDIANCE 25MG PO SCH (08:47)
[2019-02-22] MEDS: ACETAMINOPHEN-CODEINE 300/30MG TAB PO PRN ×2 (08:47→13:44)
[2019-02-22] MEDS: FAMOTIDINE 20MG TAB 20 MG TAB PO SCH ×2 (08:47→19:32)
[2019-02-22] MEDS: MULTIVITAMINS/MINERALS/IRO TAB PO SCH (08:47)
[2019-02-22] MEDS ORDERED: PREDNISONE 5 MG TABLET PO SCH (09:00)
--- NOTE | 2019-02-22 10:03 | NUR ---
REINIER Note: [employer] pending ins auth Spoke to [facility]any Culver, updated clinicals received and forwarded to insurance this morning. Pt pending ins auth at this time. EMS arranged and faxed for today, primary nurse to call [facility] once pt ready to DC. Primary nurse aware. CM to cont to follow up.
[2019-02-22 11:50] VITALS: BP 168/80
--- NOTE | 2019-02-22 13:30 | NUR ---
PT NOTE: PATIENT ATTEMPTED STAND PIVOT TRANSFER FROM CHAIR TO BED AND BUCKLED IMMEDIATELY UPON STANDING. PATIENT REQUIRED TOTAL ASSIST X2 TO PREVENT PATIENT FROM FALLING. PATIENT WAS SAFELY TRANSFERRED BACK TO BED WITHOUT FALLING TO THE GROUND. IN THE PROCESS OF TRANSFERRING BACK TO BED PATIENTS IV CAME OUT AND DONALD ROBERTSON WAS NOTIFIED IMMEDIATELY. PATIENT IS NOT SAFE AT THIS TIME FOR TRANSFERS OOB TO CHAIR SECONDARY TO LE WEAKNESS AND INCREASED RISK FOR FALLS. PATIENT REQUIRES TOTAL ASSIST X2 DURING TRANSFERS OOB. PT TX WILL CONSIST OF TRANSFERS TO EOB ONLY WITH EMPHASIS ON TRUNK STRENGTH AND LE EX'S. DONALD ROBERTSON WAS EDUCATED ON THE RATIONALE FOR PROMOTING INCREASED STRENGTH PRIOR TO GETTING PATIENT OOB IN ORDER TO PROMOTE PATIENT AND THERAPIST SAFETY AND DECREASED RISK OF FALLS. PT TX WILL ADVANCE TO TRANSFERS OOB TO CHAIR WHEN PATIENT IS DEEMED SAFE. SUPERVISING PT CHERYLE BARBOZA, IS AWARE OF CURRENT TX PLAN. Addendum: 02/22/19 at 1404 by NICKI BLAIR PT Amended: Links added.
[2019-02-22 16:21] VITALS: BP 162/66
[2019-02-22] MEDS: SIMVASTATIN 20 MG TABLET PO SCH (19:32)
== END 2019-02-22 20:40 | DRG 872 ==
LOC: EDH 09:55 → EDHIP 09:56 → 3CH 19:00 → 2CH 02-17 21:44 → 3CH 02-19 19:11
PROVIDERS: ADMIT Internal Medicine Hematology & Oncology; ATTEND Internal Medicine Hematology & Oncology
PROC: 5A09357 Assistance with Respiratory Ventilation, Less than 24 Consecutive Hours, Continuous Positive Airway Pressure (ICD-10-PCS; principal; 2019-02-17)
DX: A41.9 Sepsis, unspecified organism (principal); N30.00 Acute cystitis without hematuria; E87.1 Hypo-osmolality and hyponatremia; F32.9 Major depressive disorder, single episode, unspecified; R62.7 Adult failure to thrive; E11.9 Type 2 diabetes mellitus without complications; K21.9 Gastro-esophageal reflux disease without esophagitis; E86.0 Dehydration; I10 Essential (primary) hypertension; Z85.43 Personal history of malignant neoplasm of ovary; Z90.710 Acquired absence of both cervix and uterus; Z68.31 Body mass index [BMI] 31.0-31.9, adult; Z92.21 Personal history of antineoplastic chemotherapy; E66.9 Obesity, unspecified; B96.20 Unspecified Escherichia coli [E. coli] as the cause of diseases classified elsewhere; G89.4 Chronic pain syndrome
CPT/HCPCS: 36415; 36600; 71045; 74176; 80048; 80053; 80202; 81001; 82150; 82435; 82550; 82803; 82947; 82948; 83605; 83690; 83735; 84100; 84132; 84295; 84484; 85018; 85025; 85027; 85610; 85730; 87077; 87088; 87186; 93005; 94640; 94660; 94664; 97039; G0378; J0696; J1815; J1885; J1956; J2405; J2543; J2920; J2930; J3370; J3475; J3490; J7030; J7512

== ENCOUNTER → 2020-05-14 | Outpatient (CLI) | payer OTHER ==
[~2020-05-14] MED LIST changes: +APIX2.5T PO; +FAMO20TA8 PO; +FURO20TA4 PO; +GLIP10TA9 PO; +IOHEXOL-350 50ML VIAL IV ONE; +LEVO250T59 PO; -LEVO500T89 PO; +LISI40TA4 PO; +MEGE20TA3 PO; -MEGE400O20 PO; +MELO-108 PO; -OMEP-50 PO; +OMEP20CA12 PO; +POTA-79 PO; +SIMV-43 PO; +SITA100T12 PO
== END | disposition home or self-care (01) ==
LOC: RAH 10:49
PROVIDERS: ATTEND Family Medicine
DX: J90 Pleural effusion, not elsewhere classified (principal)
CPT/HCPCS: 71270; Q9967

== ENCOUNTER 2020-05-29 11:31 | Inpatient (IN) | payer OTHER, MEDICARE ==
[~2020-05-29] VITALS: Ht 152.4 cm; Wt 67.4 kg
[~2020-05-29 11:31] MED LIST changes: -IOHEXOL-350 50ML VIAL IV ONE; +LEVO250T43 PO; -LEVO250T59 PO; -LISI40TA4 PO; +LISI40TA9 PO
[2020-05-29 12:25] LABS: ABG BASE EXCESS -0.9 mmol/L (-2.0-3.0); ABG HCO3 21.5 mmol/L (21.0-28.0); ABG OXYGEN SATURATION 93.2 % (95.0-99.0); ABG PCO2 30 mmHg (32-45)
[2020-05-29] MEDS ORDERED: SOLU-MEDROL 125MG VIAL ONE (12:27)
[2020-05-29 12:42] LABS: BASOPHILS % (AUTO) 0.1 % (0.0-5.0); EOSINOPHILS % (AUTO) 0.1 % (0.0-8.0); HEMATOCRIT 35.2 % (36-48); LYMPHOCYTES % (AUTO) 6.4 % (21.0-51.0); MEAN CORPUSCULAR HEMOGLOBIN 29.2 pg (27.0-33.0); MEAN CORPUSCULAR HGB CONC 33.8 g/dL (32.0-36.0); MEAN CORPUSCULAR VOLUME 86.5 fL (79-99); MONOCYTES % (AUTO) 5.4 % (3.0-13.0); NEUTROPHILS % (AUTO) 87.3 % (40.0-77.0); PLATELET COUNT (AUTO) 307 K/uL (130-400); RED BLOOD CELL COUNT(AUTO) 4.07 MIL/uL (4.00-5.50); RED CELL DISTRIBUTION WIDTH 14.9 % (11.0-15.5); WHITE BLOOD COUNT (AUTO) 14.7 K/uL (4.8-10.8)
[2020-05-29 12:54] LABS: INR 1.08 (0.85-1.15); PROTHROMBIN TIME 11.7 SEC (9.6-11.6)
[2020-05-29 12:56] LABS: CREATININE 1.1 mg/dL (0.5-1.5); POTASSIUM 5.7 mmol/L (3.5-5.1)
[2020-05-29 13:01] LABS: ALBUMIN 3.2 g/dL (3.5-5.0); BILIRUBIN,TOTAL 0.9 mg/dL (0.2-1.0); TOTAL PROTEIN, SERUM 7.4 g/dL (6.0-8.3)
[2020-05-29 13:42] LABS: PARTIAL THROMBOPLASTIN TIME 20.5 SEC (26.3-35.5)
[2020-05-29 13:50] VITALS: BP 191/83
[2020-05-29] MEDS ORDERED: 0.9%NACL 1000ML 1,000 ML IV SCH (15:15)
[2020-05-29 16:39] VITALS: BP 173/74
[2020-05-29] MEDS: CLONIDINE HCL 0.1 MG TABLET PO PRN (16:47)
[2020-05-29] MEDS: SOLU-MEDROL 125MG VIAL IVP SCH ×2 (16:47→20:47)
[2020-05-29] MEDS: IPRATROPIUM/ALBUTEROL SULFATE 3 ML SOLUTION IH SCH ×2 (18:23→21:11)
[2020-05-29 20:00] VITALS: BP 171/59
[2020-05-29] MEDS: MORPHINE 4 MG SYG IVP PRN (20:48)
[2020-05-29] MEDS: INSULIN HUMULIN R 100 UNIT/ML 3ML SQ SCH (21:00)
[2020-05-29] MEDS ORDERED: INSULIN HUMULIN R 100 UNIT/ML 3ML SQ SCH (23:30)
[2020-05-30] VITALS: BP 140/64
[2020-05-30] MEDS: IPRATROPIUM/ALBUTEROL SULFATE 3 ML SOLUTION IH SCH ×6 (01:12→23:53)
[2020-05-30] MEDS: SOLU-MEDROL 125MG VIAL IVP SCH ×4 (03:40→21:07)
[2020-05-30 04:00] VITALS: BP 144/59
[2020-05-30] MEDS: INSULIN HUMULIN R 100 UNIT/ML 3ML SQ SCH ×4 (06:30→21:19)
[2020-05-30] MEDS: METFORMIN HCL 500 MG TABLET PO SCH ×2 (08:39→16:10)
[2020-05-30] MEDS: LINAGLIPTIN 5 MG TABLET PO SCH (08:39)
[2020-05-30] MEDS: LISINOPRIL 20 MG TABLET PO SCH (08:39)
[2020-05-30 09:48] VITALS: BP 166/82
[2020-05-30 12:59] VITALS: BP 177/65
[2020-05-30] MEDS: CLONIDINE HCL 0.1 MG TABLET PO PRN (16:11)
[2020-05-30] MEDS ORDERED: NON-FORMULARY MEDICATION 1 EACH (Omeprazole 20 MG) PO PRN (16:45)
[2020-05-30 19:57] VITALS: BP 148/68
[2020-05-30] MEDS ORDERED: NON-FORMULARY MEDICATION 1 EACH (Potassium Chloride 20 MEQ) PO SCH (21:00)
[2020-05-30] MEDS: KCL 20 MEQ ERTAB PO SCH (21:00)
[2020-05-30] MEDS: SIMVASTATIN 20 MG TABLET PO SCH (21:06)
[2020-05-30] MEDS: FAMOTIDINE 20MG TAB PO SCH (21:06)
[2020-05-30] MEDS: MORPHINE 4 MG SYG IVP PRN (21:08)
[2020-05-30 23:29] VITALS: BP 158/56
[2020-05-31] MEDS: MORPHINE 4 MG SYG IVP PRN ×3 (01:54→20:17)
[2020-05-31] MEDS: IPRATROPIUM/ALBUTEROL SULFATE 3 ML SOLUTION IH SCH ×6 (03:14→21:57)
[2020-05-31] MEDS: SOLU-MEDROL 125MG VIAL IVP SCH ×4 (03:32→20:16)
[2020-05-31 04:00] VITALS: BP 144/55
[2020-05-31] MEDS: INSULIN HUMULIN R 100 UNIT/ML 3ML SQ SCH ×4 (06:06→20:26)
[2020-05-31 08:00] VITALS: BP 147/56
[2020-05-31] MEDS: (Empagliflozin (Jardiance) 25 MG) PO SCH (09:00)
[2020-05-31] MEDS ORDERED: NON-FORMULARY MEDICATION 1 EACH (Empagliflozin (Jardiance) 25 MG) PO SCH (09:00)
[2020-05-31] MEDS ORDERED: NON-FORMULARY MEDICATION 1 EACH (Multivits-Min/Iron/FA/Lutein (Centrum Silver Women Tablet PO SCH (09:00)
[2020-05-31] MEDS ORDERED: MEGESTROL ACETATE 20 MG PO SCH (09:00)
[2020-05-31] MEDS ORDERED: NON-FORMULARY MEDICATION 1 EACH (Glipizide 10 MG) PO SCH (09:00)
[2020-05-31] MEDS: KCL 20 MEQ ERTAB PO SCH ×2 (09:00→20:17)
[2020-05-31] MEDS: METFORMIN HCL 500 MG TABLET PO SCH ×2 (09:17→18:45)
[2020-05-31] MEDS: PANTOPRAZOLE 40 MG TAB DR PO SCH (09:27)
[2020-05-31] MEDS: MULTIVITAMIN TABLET PO SCH (09:27)
[2020-05-31] MEDS: LINAGLIPTIN 5 MG TABLET PO SCH (09:27)
[2020-05-31] MEDS: FUROSEMIDE 20 MG TABLET PO SCH (09:27)
[2020-05-31] MEDS: ENOXAPARIN SODIUM 40 MG/0.4 ML SYRINGE SQ SCH (09:27)
[2020-05-31] MEDS: MEGESTROL 400 MG/10 ML UDCUP PO SCH (09:27)
[2020-05-31] MEDS: LISINOPRIL 20 MG TABLET PO SCH (09:28)
[2020-05-31] MEDS: GLIPIZIDE 5 MG TABLET PO SCH (09:31)
[2020-05-31 09:41] LABS: HEMATOCRIT 35.1 % (36-48); MEAN CORPUSCULAR HEMOGLOBIN 29.2 pg (27.0-33.0); MEAN CORPUSCULAR VOLUME 88.4 fL (79-99); PLATELET COUNT (AUTO) 314 K/uL (130-400); RED BLOOD CELL COUNT(AUTO) 3.97 MIL/uL (4.00-5.50); RED CELL DISTRIBUTION WIDTH 15.3 % (11.0-15.5); WHITE BLOOD COUNT (AUTO) 21.7 K/uL (4.8-10.8)
[2020-05-31 10:00] LABS: CREATININE 1.2 mg/dL (0.5-1.5); POTASSIUM 4.9 mmol/L (3.5-5.1)
[2020-05-31 10:36] LABS: LYMPHOCYTES % (MANUAL) 1 % (22-44); MAN.DIFF COMMENT-IMPRESSION MANUAL DIFFERENTIAL; MONOCYTES % (MANUAL) 5 % (2-9); SEGMENTED NEUTROPHILS % 94 % (40-70)
[2020-05-31 10:37] LABS: PLATELET MORPHOLOGY COMMENT ADEQUATE
[2020-05-31 12:07] VITALS: BP 122/60
[2020-05-31 16:00] VITALS: BP 131/67
[2020-05-31 20:00] VITALS: BP 155/78
[2020-05-31] MEDS: FAMOTIDINE 20MG TAB PO SCH (20:16)
[2020-05-31] MEDS: SIMVASTATIN 20 MG TABLET PO SCH (20:16)
[2020-06-01] VITALS (7 sets, daily range): BP systolic 146–190; BP diastolic 58–82
[2020-06-01] MEDS: MORPHINE 4 MG SYG IVP PRN ×3 (00:47→20:36)
[2020-06-01] MEDS: IPRATROPIUM/ALBUTEROL SULFATE 3 ML SOLUTION IH SCH ×6 (02:55→23:41)
[2020-06-01] MEDS: SOLU-MEDROL 125MG VIAL IVP SCH ×4 (03:16→20:21)
[2020-06-01 05:54] LABS: MEAN CORPUSCULAR HEMOGLOBIN 28.9 pg (27.0-33.0); MEAN CORPUSCULAR HGB CONC 32.6 g/dL (32.0-36.0); MEAN CORPUSCULAR VOLUME 88.8 fL (79-99); PLATELET COUNT (AUTO) 362 K/uL (130-400); RED BLOOD CELL COUNT(AUTO) 3.94 MIL/uL (4.00-5.50); RED CELL DISTRIBUTION WIDTH 15.4 % (11.0-15.5); WHITE BLOOD COUNT (AUTO) 21.7 K/uL (4.8-10.8)
[2020-06-01] MEDS: INSULIN HUMULIN R 100 UNIT/ML 3ML SQ SCH ×4 (06:09→20:29)
[2020-06-01] MEDS: GLIPIZIDE 5 MG TABLET PO SCH (06:10)
[2020-06-01 06:23] LABS: CREATININE 1.3 mg/dL (0.5-1.5); POTASSIUM 4.9 mmol/L (3.5-5.1)
[2020-06-01 06:33] LABS: BAND NEUTROPHILS % (MANUAL) 5 % (0-2); LYMPHOCYTES % (MANUAL) 1 % (22-44); MAN.DIFF COMMENT-IMPRESSION MANUAL DIFFERENTIAL; METAMYELOCYTES % 1 % (0-0); MONOCYTES % (MANUAL) 6 % (2-9); PLATELET MORPHOLOGY COMMENT ADEQUATE; SEGMENTED NEUTROPHILS % 87 % (40-70)
[2020-06-01] MEDS: (Empagliflozin (Jardiance) 25 MG) PO SCH (09:00)
[2020-06-01] MEDS: ENOXAPARIN SODIUM 40 MG/0.4 ML SYRINGE SQ SCH (09:00)
[2020-06-01] MEDS: FUROSEMIDE 20 MG TABLET PO SCH (09:26)
[2020-06-01] MEDS: LISINOPRIL 20 MG TABLET PO SCH (09:27)
[2020-06-01] MEDS: PANTOPRAZOLE 40 MG TAB DR PO SCH (09:27)
[2020-06-01] MEDS: METFORMIN HCL 500 MG TABLET PO SCH ×2 (11:01→16:37)
[2020-06-01] MEDS: KCL 20 MEQ ERTAB PO SCH ×3 (11:02→20:31)
[2020-06-01] MEDS: MULTIVITAMIN TABLET PO SCH (11:02)
[2020-06-01] MEDS: MEGESTROL 400 MG/10 ML UDCUP PO SCH (11:02)
[2020-06-01] MEDS: LINAGLIPTIN 5 MG TABLET PO SCH (11:12)
[2020-06-01] MEDS: FAMOTIDINE 20MG TAB PO SCH (20:22)
[2020-06-01] MEDS: SIMVASTATIN 20 MG TABLET PO SCH ×2 (20:22→20:31)
[2020-06-01] MEDS: ONDANSETRON 4MG INJ IVP PRN (23:21)
[2020-06-02] VITALS (14 sets, daily range): BP systolic 82–191; BP diastolic 50–105
[2020-06-02] MEDS: IPRATROPIUM/ALBUTEROL SULFATE 3 ML SOLUTION IH SCH ×6 (02:00→22:05)
[2020-06-02] MEDS: SOLU-MEDROL 125MG VIAL IVP SCH ×4 (03:32→20:39)
[2020-06-02 04:44] LABS: INR 1.09 (0.85-1.15); PROTHROMBIN TIME 11.8 SEC (9.6-11.6)
[2020-06-02 04:45] LABS: PARTIAL THROMBOPLASTIN TIME 24.8 SEC (26.3-35.5)
[2020-06-02] MEDS: GLIPIZIDE 5 MG TABLET PO SCH (05:23)
[2020-06-02] MEDS: INSULIN HUMULIN R 100 UNIT/ML 3ML SQ SCH ×4 (06:15→21:37)
[2020-06-02] MEDS: METFORMIN HCL 500 MG TABLET PO SCH ×2 (08:00→17:00)
[2020-06-02] MEDS: LISINOPRIL 20 MG TABLET PO SCH (08:33)
[2020-06-02] MEDS: PANTOPRAZOLE 40 MG TAB DR PO SCH (08:33)
[2020-06-02] MEDS: FUROSEMIDE 20 MG TABLET PO SCH (08:34)
[2020-06-02] MEDS: KCL 20 MEQ ERTAB PO SCH ×2 (08:34→20:50)
[2020-06-02] MEDS: LINAGLIPTIN 5 MG TABLET PO SCH (08:35)
[2020-06-02] MEDS: MEGESTROL 400 MG/10 ML UDCUP PO SCH (08:35)
[2020-06-02] MEDS: ENOXAPARIN SODIUM 40 MG/0.4 ML SYRINGE SQ SCH (08:35)
[2020-06-02] MEDS: MULTIVITAMIN TABLET PO SCH (08:35)
[2020-06-02] MEDS: (Empagliflozin (Jardiance) 25 MG) PO SCH (09:00)
[2020-06-02] MEDS: FAMOTIDINE 20MG TAB PO SCH (20:37)
[2020-06-02] MEDS: SIMVASTATIN 20 MG TABLET PO SCH (20:50)
[2020-06-02] MEDS ORDERED: ACETAMINOPHEN 325 MG TAB PO PRN (21:15)
[2020-06-03] MEDS: ONDANSETRON 4MG INJ IVP PRN (01:24)
[2020-06-03] MEDS: IPRATROPIUM/ALBUTEROL SULFATE 3 ML SOLUTION IH SCH ×5 (02:21→18:07)
[2020-06-03 04:00] VITALS: BP 123/44
[2020-06-03] MEDS: SOLU-MEDROL 125MG VIAL IVP SCH ×3 (04:23→17:42)
[2020-06-03] MEDS: GLIPIZIDE 5 MG TABLET PO SCH ×2 (06:18→06:25)
[2020-06-03] MEDS: INSULIN HUMULIN R 100 UNIT/ML 3ML SQ SCH ×3 (06:19→17:43)
[2020-06-03 08:00] VITALS: BP 128/51
[2020-06-03] MEDS: METFORMIN HCL 500 MG TABLET PO SCH ×2 (08:11→17:42)
[2020-06-03] MEDS: PANTOPRAZOLE 40 MG TAB DR PO SCH (08:11)
[2020-06-03] MEDS: LINAGLIPTIN 5 MG TABLET PO SCH (08:11)
[2020-06-03] MEDS: MEGESTROL 400 MG/10 ML UDCUP PO SCH (08:12)
[2020-06-03] MEDS: (Empagliflozin (Jardiance) 25 MG) PO SCH (09:00)
[2020-06-03] MEDS ORDERED: DOCUSATE SODIUM 100 MG CAP PO SCH (09:00)
[2020-06-03] MEDS: MULTIVITAMIN TABLET PO SCH (10:02)
[2020-06-03] MEDS: KCL 20 MEQ ERTAB PO SCH (10:02)
[2020-06-03] MEDS: FUROSEMIDE 20 MG TABLET PO SCH (10:03)
[2020-06-03] MEDS: LISINOPRIL 20 MG TABLET PO SCH (10:03)
[2020-06-03] MEDS: ENOXAPARIN SODIUM 40 MG/0.4 ML SYRINGE SQ SCH (10:04)
[2020-06-03 11:46] VITALS: BP 108/70
[2020-06-03 16:00] VITALS: BP 129/52
== END 2020-06-03 19:00 | disposition home or self-care (01) | DRG 181 ==
LOC: EDH 11:31 → EDHIP 11:32 → 3CH 13:26
PROVIDERS: ADMIT Internal Medicine Hematology & Oncology; ATTEND Internal Medicine Hematology & Oncology
PROC: 0BBF3ZX Excision of Right Lower Lung Lobe, Percutaneous Approach, Diagnostic (ICD-10-PCS; principal; 2020-06-02)
DX: C78.01 Secondary malignant neoplasm of right lung (principal); C56.9 Malignant neoplasm of unspecified ovary; I48.21 Permanent atrial fibrillation; C78.02 Secondary malignant neoplasm of left lung; E11.9 Type 2 diabetes mellitus without complications; E78.5 Hyperlipidemia, unspecified; I10 Essential (primary) hypertension; R06.03 Acute respiratory distress; Z20.822 Contact with and (suspected) exposure to COVID-19; Z85.43 Personal history of malignant neoplasm of ovary; Z90.710 Acquired absence of both cervix and uterus; Z90.722 Acquired absence of ovaries, bilateral
CPT/HCPCS: 32405; 36415; 36600; 71045; 77012; 80048; 80053; 82550; 82803; 82948; 83880; 84484; 85025; 85610; 85730; 87426; 88305; 88341; 88342; 93005; 93306; 93356; 94640; 94664; 94760; G0378; J1650; J1815; J2270; J2405; J2930; J7030; U0003